=== PATIENT | female | born 1955 | race African-American/Black ===

== ENCOUNTER 2020-04-10 04:25 | Emergency (ER) | payer OTHER ==
[~2020-04-10] VITALS: Ht 157.5 cm; Wt 57.6 kg
[2020-04-10 04:35] VITALS: BP_SYST 132
[2020-04-10] MEDS ORDERED: KETOROLAC TROMETHAMINE 30 MG VIAL IVP ONE (05:15)
[2020-04-10] MEDS ORDERED: NACL 0.9% 1,000 ML IV ONE (05:15)
[2020-04-10] MEDS ORDERED: ONDANSETRON HCL 4 MG/2 ML VIAL IVP ONE (05:15)
[2020-04-10 05:42] LABS: BASOPHILS % (AUTO) 0.2 % (0.0-2.0); HEMATOCRIT 37.3 % (36-48); HEMOGLOBIN 12.2 g/dL (12.0-16.0); LYMPHOCYTES # (AUTO) 0.9 K/uL (1.0-5.5); LYMPHOCYTES % (AUTO) 14.9 % (20.5-51.5); MEAN CORPUSCULAR HEMOGLOBIN 33 pg (27-31); MEAN CORPUSCULAR HGB CONC 33 % (32-36); MEAN CORPUSCULAR VOLUME 100 fL (79.0-98.0); MONOCYTES # (AUTO) 0.3 K/uL (0.0-1.0); MONOCYTES % (AUTO) 4.4 % (1.7-9.3); NEUTROPHILS # (AUTO) 4.7 K/uL (1.8-7.7); NEUTROPHILS % (AUTO) 80.5 % (40.0-70.0); PLATELET COUNT (AUTO) 180 K/uL (130-430); RED BLOOD CELL COUNT(AUTO) 3.74 MIL/uL (4.2-6.2); RED CELL DISTRIBUTION WIDTH 13.8 % (9.0-15.0); WHITE BLOOD COUNT (AUTO) 5.9 K/uL (4.8-10.8)
[2020-04-10 06:05] LABS: ALBUMIN 3.9 g/dL (3.4-4.8); CALCIUM 9.2 mg/dL (8.4-11.0); CREATININE 0.56 mg/dL (0.55-1.30); POTASSIUM 3.1 mmol/L (3.5-5.1); TOTAL BILIRUBIN 0.6 mg/dL (0.0-1.0)
[2020-04-10] MEDS ORDERED: POTASSIUM CHLORIDE 20 MEQ/PKT PACKET PO ONE (08:45)
[2020-04-10 08:49] LABS: BILIRUBIN,URINE NEGATIVE (NEGATIVE); BLOOD, URINE NEGATIVE (NEGATIVE); CLARITY/URINE CLEAR (CLEAR); COLOR,URINE YELLOW (YELLOW); GLUCOSE,URINE NEGATIVE (NEGATIVE); KETONES,URINE TRACE (NEGATIVE); LEUKOCYTE ESTERASE ,URINE NEGATIVE (NEGATIVE); NITRITE, URINE NEGATIVE (NEGATIVE); PH,URINE 6.5 (5.0-8.0); PROTEIN URINE NEGATIVE (NEGATIVE); UROBILINOGEN,URINE 0.2 (0.2-1.0)
[2020-04-10] MEDS ORDERED: POTASSIUM CHLORIDE 20 MEQ/PKT PACKET ONE (09:01)
[2020-04-10 09:30] VITALS: BP_SYST 108
== END 2020-04-10 09:30 | disposition home or self-care (01) ==
LOC: SED 04:25
DX: R10.9 Unspecified abdominal pain (principal); R11.2 Nausea with vomiting, unspecified; R19.7 Diarrhea, unspecified
CPT/HCPCS: 36415; 74176; 76376; 80053; 81003; 82150; 83690; 85025; 85610; 93005; 96361; 96374; 96375; 99285; J1885; J2405; J7030

== ENCOUNTER 2021-04-26 08:35 | Emergency (ER) | payer OTHER ==
[~2021-04-26] VITALS: Ht 157.5 cm; Wt 55.3 kg
[2021-04-26 08:35] VITALS: BP_SYST 130
--- NOTE | 2021-04-26 08:35 | NUR ---
BROUGHT BACK TO BED #5 AND TRIAGED. REPORT GIVEN TO LUIS
--- NOTE | 2021-04-26 08:42 | NUR ---
ER at bedside examining patient.
[2021-04-26 09:11] LABS: BASOPHILS % (AUTO) 0.4 % (0.0-2.0); HEMATOCRIT 34.5 % (36-48); HEMOGLOBIN 11.3 g/dL (12.0-16.0); LYMPHOCYTES % (AUTO) 13.6 % (20.5-51.5); MEAN CORPUSCULAR HEMOGLOBIN 32 pg (27-31); MEAN CORPUSCULAR HGB CONC 33 % (32-36); MEAN CORPUSCULAR VOLUME 99 fL (79.0-98.0); MONOCYTES # (AUTO) 0.3 K/uL (0.0-1.0); MONOCYTES % (AUTO) 4.6 % (1.7-9.3); NEUTROPHILS # (AUTO) 6.1 K/uL (1.8-7.7); NEUTROPHILS % (AUTO) 81.4 % (40.0-70.0); PLATELET COUNT (AUTO) 197 K/uL (130-430); RED BLOOD CELL COUNT(AUTO) 3.49 MIL/uL (4.2-6.2); RED CELL DISTRIBUTION WIDTH 15.2 % (9.0-15.0); WHITE BLOOD COUNT (AUTO) 7.5 K/uL (4.8-10.8)
--- NOTE | 2021-04-26 09:24 | NUR ---
ARRIVES C/O CP AND BACK PAIN SINCE 11 PM LAST NIGHT. 12 LEAD DONE, BLOOD TO LAB, OIC PLACED. MD AT BEDSIDE
[2021-04-26] MEDS ORDERED: MORPHINE 4 MG INJ. 4 MG/ML VIAL IVP ONE ×2 (09:30→11:30)
[2021-04-26 09:33] LABS: CALCIUM 8.5 mg/dL (8.4-11.0); CREATININE 0.41 mg/dL (0.55-1.30); POTASSIUM 4.2 mmol/L (3.5-5.1)
[2021-04-26 09:40] LABS: ALBUMIN 3.9 g/dL (3.4-4.8); PHOSPHORUS 3.5 mg/dL (2.7-4.5); TOTAL BILIRUBIN 0.5 mg/dL (0.0-1.0)
[2021-04-26] MEDS ORDERED: NACL 0.9% 1,000 ML IV ONE (09:45)
[2021-04-26] MEDS ORDERED: ONDANSETRON HCL 4 MG/2 ML VIAL IVP ONE ×2 (09:45→11:30)
--- NOTE | 2021-04-26 10:24 | NUR ---
CONSENT SIGNED FOR CT ANGIO CHEST. MD AWARE UNABLE TO OBATIN 20G OR GREATER PIV TO AC.
[2021-04-26] MEDS ORDERED: IOHEXOL 350 mgI/mL, 150 ML INFUS..BTL IV ONE (10:32)
--- NOTE | 2021-04-26 11:16 | NUR ---
PT TO CT SCAN
--- NOTE | 2021-04-26 12:08 | NUR ---
Pt resting at this time, VSS, respirations even and unlabored
--- NOTE | 2021-04-26 13:13 | NUR ---
Urine not sent to lab per Dr. Tao, urine dip was done
[2021-04-26] MEDS ORDERED: ACET-2634 PO (13:57)
[2021-04-26] MEDS ORDERED: IBUP-1969 PO (13:57)
[2021-04-26 14:07] VITALS: BP_SYST 122
--- NOTE | 2021-04-26 14:13 | NUR ---
Patient given written and verbal discharge instructions and verbalizes understanding. ER MARLA MARTINEZ discussed with patient the results and treatment provided. Patient in stable condition. ID arm band removed. IV catheter removed intact and dressing applied, no active bleeding. Rx of MOTRIN given. Patient educated on pain management and to follow up with PMD. Pain Scale 2. Opportunity for questions provided and answered. Medication side effect fact sheet provided.
== END 2021-04-26 14:13 | disposition home or self-care (01) ==
LOC: SED 08:35
DX: R07.89 Other chest pain (principal); R03.0 Elevated blood-pressure reading, without diagnosis of hypertension; Z79.899 Other long term (current) drug therapy
CPT/HCPCS: 36415; 71045; 71275; 72191; 74175; 76376; 80053; 83690; 83735; 83880; 84100; 84484; 85025; 93005; 96361; 96374; 96375; 96376; 99285; J2270; J2405; J7030; Q9967

== ENCOUNTER 2021-07-23 09:04 | Emergency (ER) | payer OTHER ==
[~2021-07-23] VITALS: Ht 157.5 cm; Wt 56.7 kg
[~2021-07-23 09:04] MED LIST: ACET-2634 PO; IBUP-1969 PO
[2021-07-23 09:08] VITALS: BP_SYST 142
--- NOTE | 2021-07-23 09:08 | NUR ---
Patient to ER bed 2 to gown for evaluation. Side rails up. Report given to Jose Luis. Triage done at bedside.
--- NOTE | 2021-07-23 09:10 | NUR ---
Pt. bib boyfriend with initial c/o chest pain, during triage pts. pain is actually more abd. with N/V/D X 4 days, states feels like her intestines are burning, this is her 3rd visit to our ER with same type of pain
--- NOTE | 2021-07-23 09:12 | NUR ---
ER at bedside examining patient.
[2021-07-23] MEDS: ONDANSETRON 4 MG ODT TAB PO ONE (09:30)
[2021-07-23 09:47] LABS: BASOPHILS % (AUTO) 0.6 % (0.0-2.0); EOSINOPHILS # (AUTO) 0.1 K/uL (0.0-0.4); EOSINOPHILS % (AUTO) 2.2 % (0.0-4.0); HEMATOCRIT 40.2 % (36-48); LYMPHOCYTES # (AUTO) 1.7 K/uL (1.0-5.5); LYMPHOCYTES % (AUTO) 35.6 % (20.5-51.5); MEAN CORPUSCULAR HEMOGLOBIN 32 pg (27-31); MEAN CORPUSCULAR HGB CONC 32 % (32-36); MEAN CORPUSCULAR VOLUME 98 fL (79.0-98.0); MONOCYTES # (AUTO) 0.4 K/uL (0.0-1.0); MONOCYTES % (AUTO) 9.3 % (1.7-9.3); NEUTROPHILS # (AUTO) 2.5 K/uL (1.8-7.7); NEUTROPHILS % (AUTO) 52.3 % (40.0-70.0); PLATELET COUNT (AUTO) 157 K/uL (130-430); RED BLOOD CELL COUNT(AUTO) 4.09 MIL/uL (4.2-6.2); RED CELL DISTRIBUTION WIDTH 13.7 % (9.0-15.0); WHITE BLOOD COUNT (AUTO) 4.7 K/uL (4.8-10.8)
--- NOTE | 2021-07-23 10:00 | NUR ---
In ER bed 2 C/O Substernal and back pain EKG done Blood sent Xray done Awaiting results
[2021-07-23 10:04] LABS: ANION GAP 9 (5-15); CALCIUM 8.4 mg/dL (8.4-11.0); CHLORIDE 104 mmol/L (98-107); CREATININE 0.44 mg/dL (0.55-1.30); GLUCOSE 97 mg/dL (70-99); POTASSIUM 3.3 mmol/L (3.5-5.1); SODIUM SERUM 139 mmol/L (136-145); UREA NITROGEN, BLOOD 6 mg/dL (8-21)
[2021-07-23 10:06] LABS: GFR AFRICAN AMERICAN 184 mL/min (>90)
[2021-07-23 10:08] LABS: ALANINE AMINOTRANSFERASE 22 U/L (12-78); ALBUMIN 3.5 g/dL (3.4-4.8); AMYLASE 35 U/L (0-100); ASPARTATE AMINOTRANSFERASE 24 U/L (10-37); LIPASE 69 U/L (73-393); TOTAL BILIRUBIN 0.5 mg/dL (0.0-1.0)
[2021-07-23] MEDS: NACL 0.9% 1,000 ML IV ONE (10:12)
[2021-07-23] MEDS: MORPHINE 2 MG/ML INJ. SYRINGE IVP ONE (10:12)
[2021-07-23 10:33] LABS: BLOOD, URINE NEGATIVE (NEGATIVE); CLARITY/URINE CLEAR (CLEAR); GLUCOSE,URINE NEGATIVE (NEGATIVE); KETONES,URINE 3+ (NEGATIVE); LEUKOCYTE ESTERASE ,URINE NEGATIVE (NEGATIVE); NITRITE, URINE NEGATIVE (NEGATIVE); PROTEIN URINE NEGATIVE (NEGATIVE)
[2021-07-23 10:33] LABS: C-REACTIVE PROTEIN QUANT < 0.2 mg/dL (0-0.5)
[2021-07-23 10:42] LABS: BILIRUBIN,URINE 1+ (NEGATIVE); COLOR,URINE AMBER (YELLOW)
[2021-07-23 10:44] LABS: BACTERIA,URINE FEW /HPF (None Seen); MUCUS,URINE 3+ /LPF (None Seen); RBC,URINE 0-3 /HPF (0-3); WBC,URINE 0-3 /HPF (0-3)
[2021-07-23] MEDS ORDERED: HYDR-3917 PO (10:53)
[2021-07-23] MEDS ORDERED: ONDA-8 TL (10:53)
[2021-07-23 10:56] VITALS: BP_SYST 121
--- NOTE | 2021-07-23 11:00 | NUR ---
Patient given written and verbal discharge instructions and verbalizes understanding. ER MD discussed with patient the results and treatment provided. Patient in stable condition. ID arm band removed. IV catheter removed intact and dressing applied, no active bleeding. Rx of given. Patient educated on pain management and to follow up with PMD. Pain Scale . Opportunity for questions provided and answered. Medication side effect fact sheet provided.
--- NOTE | 2021-07-23 11:00 | NUR ---
Stable VSS Pain has decreased MD has reviewed all labs and Dc'd home To exit
== END 2021-07-23 10:56 | disposition home or self-care (01) ==
LOC: SED 09:04
DX: R10.13 Epigastric pain (principal); R07.2 Precordial pain; Z79.899 Other long term (current) drug therapy
CPT/HCPCS: 36415; 71045; 74176; 76376; 80053; 81000; 82150; 83605; 83690; 84484; 85025; 86140; 93005; 96361; 96374; 99285; J2270; J7030; Q0162

== ENCOUNTER 2021-12-15 18:26 | Inpatient (IN) | payer OTHER ==
[~2021-12-15] VITALS: Ht 160 cm; Wt 56.7 kg
[~2021-12-15 18:26] MED LIST changes: +HYDR-3917 PO; +ONDA-8 TL
[2021-12-15 18:43] VITALS: BP_SYST 116
--- NOTE | 2021-12-15 19:27 | NUR ---
Patient to ER bed 03 to gown for evaluation. Side rails up. Report given to Graham HENRY.
[2021-12-15] MEDS ORDERED: NACL 0.9% 1,000 ML IV ONE (19:30)
[2021-12-15] MEDS ORDERED: FAMOTIDINE PF 20 MG/2 ML VIAL IVP ONE (19:45)
[2021-12-15] MEDS ORDERED: MORPHINE 4 MG INJ. 4 MG/ML VIAL IVP ONE ×2 (19:45→21:00)
[2021-12-15] MEDS ORDERED: ONDANSETRON HCL 4 MG/2 ML VIAL IVP ONE ×2 (19:45→21:00)
[2021-12-15 20:22] LABS: BILIRUBIN,URINE 3+ (NEGATIVE); BLOOD, URINE 1+ (NEGATIVE); CLARITY/URINE CLEAR (CLEAR); GLUCOSE,URINE NEGATIVE (NEGATIVE); KETONES,URINE 3+ (NEGATIVE); LEUKOCYTE ESTERASE ,URINE NEGATIVE (NEGATIVE); NITRITE, URINE NEGATIVE (NEGATIVE); PROTEIN URINE 1+ (NEGATIVE)
[2021-12-15 20:24] LABS: BASOPHILS # (AUTO) 0.1 K/uL (0.0-0.2); BASOPHILS % (AUTO) 1.2 % (0.0-2.0); EOSINOPHILS # (AUTO) 0.1 K/uL (0.0-0.4); EOSINOPHILS % (AUTO) 0.9 % (0.0-4.0); HEMATOCRIT 35.9 % (36-48); HEMOGLOBIN 12.1 g/dL (12.0-16.0); LYMPHOCYTES # (AUTO) 1.1 K/uL (1.0-5.5); LYMPHOCYTES % (AUTO) 9.9 % (20.5-51.5); MEAN CORPUSCULAR HEMOGLOBIN 33 pg (27-31); MEAN CORPUSCULAR HGB CONC 34 % (32-36); MEAN CORPUSCULAR VOLUME 97 fL (79.0-98.0); MONOCYTES # (AUTO) 0.5 K/uL (0.0-1.0); MONOCYTES % (AUTO) 4.6 % (1.7-9.3); NEUTROPHILS % (AUTO) 83.4 % (40.0-70.0); PLATELET COUNT (AUTO) 144 K/uL (130-430); RED BLOOD CELL COUNT(AUTO) 3.71 MIL/uL (4.2-6.2); RED CELL DISTRIBUTION WIDTH 14.4 % (9.0-15.0); WHITE BLOOD COUNT (AUTO) 10.8 K/uL (4.8-10.8)
[2021-12-15 20:28] LABS: CALCIUM 9.5 mg/dL (8.4-11.0); CREATININE 0.69 mg/dL (0.55-1.30)
[2021-12-15 20:33] LABS: ALBUMIN 3.6 g/dL (3.4-4.8); TOTAL BILIRUBIN 0.9 mg/dL (0.0-1.0)
[2021-12-15 20:39] LABS: COLOR,URINE YELLOW (YELLOW)
[2021-12-15 20:50] LABS: BACTERIA,URINE RARE /HPF (None Seen)
[2021-12-15 20:51] LABS: HYALINE CASTS, URINE 0-10 /LPF (None Seen); MUCUS,URINE 2+ /LPF (None Seen)
[2021-12-15] MEDS ORDERED: ACETAMINOPHEN 325 MG TABLET PO PRN (22:00)
[2021-12-15] MEDS ORDERED: KETOROLAC TROMETHAMINE 30 MG VIAL IVP ONE (22:45)
[2021-12-15] MEDS: MORPHINE 4 MG INJ. 4 MG/ML VIAL IVP PRN (23:21)
[2021-12-15] MEDS: ONDANSETRON HCL 4 MG/2 ML VIAL IVP PRN (23:21)
--- NOTE | 2021-12-15 23:35 | NUR ---
PATIENT STATES SHE IS FULL CODE AND DOES NOT TAKE ANY MEDICATION.
[2021-12-15] MEDS: D5/0.45 NS 1,000 ML IV SCH (23:41)
--- NOTE | 2021-12-15 23:41 | NUR ---
Admit bed requested Patient will be admitted to care of . Admitted to MED SURG unit. Diagnosis PANCREATITIS Inpatient (Yes or No) YES Observation (Yes or No) NO Orientation concerns or request close to nursing station (Yes or No) NO Covid Status - On vent or bipap N Isolation requirements N Needs a sitter N From Home (Yes or if No enter name of facility) Y Requires Dialysis (Yes or No) N Med Rec Completed (Yes of No) Y
--- NOTE | 2021-12-16 | NUR ---
PT BIB BOYFRIEND, AWAKE AND ALERT, AO X4. NO SOB. PT C/O ABDOMINAL PAIN 10/ X 3 DAYS. PT DENIES N/V. PERRLA, CAP REFILL < 3 SEC.
--- NOTE | 2021-12-16 00:01 | NUR ---
MD DR GUTIÉRREZ AT BEDSIDE
--- NOTE | 2021-12-16 01:30 | NUR ---
SBP IS 86 PATIENT REPORTS THAT SBP IS NORMALLY IN THE 75S. CALLED PLACED TO DR. SOSA. Addendum: 12/16/21 at 0131 by [email or web address] PATIENT AWAKE, ALERT AND ANSWERING QUESTIONS.
--- NOTE | 2021-12-16 02:45 | NUR ---
Patient resting quietly. No acute distress noted.
--- NOTE | 2021-12-16 04:44 | NUR ---
PATIENT RESTING IN BED. VOICED NO CONCERNS. BP 81/42. PATIENT REPORTS BASELINE SBP IN THE 70S. AOX4, NO ACUTE DISTRESS NOTED.
--- NOTE | 2021-12-16 05:37 | NUR ---
PATIENT STATES SHE IS FULL CODE AND DENIES TAKING ANY MEDICATION DAILY.
--- NOTE | 2021-12-16 06:12 | NUR ---
PATIENT MOVED TO HOSPITAL BED.
[2021-12-16] MEDS: D5/0.45 NS 1,000 ML IV SCH ×3 (06:43→22:37)
--- NOTE | 2021-12-16 06:43 | NUR ---
IVF infusing with no s/s of infiltration at this time. Will cont to monitor
--- NOTE | 2021-12-16 07:13 | NUR ---
REPORT GIVEN TO ELAINE HECTOR FOR CONTINUITY OF CARE.
--- NOTE | 2021-12-16 07:52 | NUR ---
RECEIVED PT FROM ELAINE MYERS. PT IS ADMITTED FOR ABDOMINAL PAIN WITH C/O N/V AND PAIN X5 DAYS. PT IS AAOX4. RESP E/U. ON R/A. NORMAL S1S2 NOTED. ABDOMEN SOFT, TENDER. PT DENIES N/V AT THIS TIME. SKIN WARM, INTACT, CAP REFILL <3 SECS. NO EDEMA. IV CATH TO RAC 20 WITH D5 NS RUNNING 125ML/HOUR. SITE WNL. SIDERAILS UP X2.
[2021-12-16] MEDS: MORPHINE 4 MG INJ. 4 MG/ML VIAL IVP PRN ×3 (09:28→22:38)
--- NOTE | 2021-12-16 09:32 | NUR ---
Patient will be admitted to care of ELAINE GERBER. Admitted to MEDICAL SURGICAL unit. Will go to room 128B. Belongings list completed. Complete and up to date summary report printed. SBAR report to be given at bedside with opportunity for questions.
--- NOTE | 2021-12-16 09:39 | NUR ---
MORPHINE 3MG IVP GIVEN FOR ABDOMINAL PAIN 10/11. CALLED AND UPDATED ADRIANA THAT PAIN MEDICATION WAS JUST GIVEN. PT TRANSPORTING AT THIS TIME.
[2021-12-16 09:50] VITALS: BP_SYST 105
--- NOTE | 2021-12-16 09:50 | NUR ---
admitted patient admitted from ER report was endorsed by er nurse. patient is awake and alert, educated air pollution analyst light for assistance. call light is with her. patient changed into gown. ambulated to bathroom and back to bed, gait is steady. patient has no other needs at this time. no signs of any distress.
[2021-12-16 12:00] VITALS: BP_SYST 91
[2021-12-16] MEDS ORDERED: PANTOPRAZOLE SODIUM 40 MG/VIAL (PROTONIX) IVP ONE (12:00)
--- NOTE | 2021-12-16 12:53 | NUR ---
medication patients scheduled medication given per order. patient is awake and alert sitting up in bed no signs of any distress,breathing is equal and non labored. call light is with her educated to use call light for assistance.
--- NOTE | 2021-12-16 15:46 | NUR ---
pain medication/ iv fluid iv fluid hung per order. patients complains of pain medicated per order. patient is awake and alert. educated organizational research consultant light for assistance. call light is with her.
[2021-12-16 16:00] VITALS: BP_SYST 99
--- NOTE | 2021-12-16 18:58 | NUR ---
rn closing note patient is awake and alert sitting in bed, significant other at bedside. patient is awake and alert no complaints at this time. call light is with her educated to use for assistance.
--- NOTE | 2021-12-16 19:40 | NUR ---
INITIAL NOTE AT INITIAL ASSESSMENT, PATIENT IS RESTING IN BED, STABLE, NO SIGNS OF RESPIRATORY DISTRESS. PATIENT VERBALIZES TOLERABLE PAIN. PLAN OF CARE FOR THE EVENING IS COMMUNICATED WITH THE PATIENT. PATIENT SUCCESSFULLY DEMONSTRATES CORRECT USAGE OF CALL LIGHT AT THIS TIME. BED IS LOCKED, AND AT THE LOWEST LEVEL. FALL, SAFETY, AND ASPIRATION PRECAUTIONS WILL BE IN PLACE THROUGHOUT THE SHIFT.
[2021-12-16 19:45] VITALS: BP_SYST 106
[2021-12-16] MEDS: ONDANSETRON HCL 4 MG/2 ML VIAL IVP PRN (22:37)
--- NOTE | 2021-12-16 22:50 | NUR ---
PAIN NOTE PRN MEDICATION GIVEN FOR PATIENT'S COMPLAINT OF SEVERE PAIN. WILL REASSESS.
[2021-12-17 00:44] VITALS: BP_SYST 96
--- NOTE | 2021-12-17 01:30 | NUR ---
NOTE PATIENT SLEEPING, STABLE, NO SIGNS OF RESPIRATORY DISTRESS. CALL LIGHT WITHIN REACH.
--- NOTE | 2021-12-17 03:20 | NUR ---
ROUNDS PATIENT IS SLEEPING, STABLE, NO SIGNS OF RESPIRATORY DISTRESS. CALL LIGHT WITHIN REACH.
--- NOTE | 2021-12-17 06:01 | NUR ---
CLOSING NOTE PATIENT SLEPT WELL THROUGHOUT THE NIGHT, SHE VERBALIZED THAT PRN MEDICATION GIVEN TO HER FOR HER ABDOMINAL PAIN WAS EFFECTIVE. AT THIS TIME, SHE IS STABLE, NO SIGNS OF RESPIRATORY DISTRESS. CALL LIGHT WITHIN REACH. BED IS LOCKED, AND AT THE LOWEST LEVEL. FALL AND SAFETY PRECAUTIONS HAVE BEEN IN PLACE THROUGHOUT THE SHIFT. WILL CONTINUE TO MONITOR UNTIL REPORT IS GIVEN AT BEDSIDE TO AM NURSE.
[2021-12-17] MEDS: ONDANSETRON HCL 4 MG/2 ML VIAL IVP PRN ×2 (06:47→12:31)
[2021-12-17] MEDS: D5/0.45 NS 1,000 ML IV SCH ×2 (06:51→14:00)
[2021-12-17] MEDS: MORPHINE 4 MG INJ. 4 MG/ML VIAL IVP PRN ×2 (06:51→12:31)
--- NOTE | 2021-12-17 07:00 | NUR ---
Report received from night shift manager RN for continuity of care. Patient stable.
[2021-12-17 07:40] VITALS: BP_SYST 91
[2021-12-17 07:42] LABS: CALCIUM 8.5 mg/dL (8.4-11.0); CREATININE 0.59 mg/dL (0.55-1.30)
[2021-12-17] MEDS: PANTOPRAZOLE SODIUM 40 MG/VIAL (PROTONIX) IVP SCH (08:59)
[2021-12-17 09:26] LABS: POTASSIUM 2.7 mmol/L (3.5-5.1)
[2021-12-17] MEDS ORDERED: KCL 10 mEq in 50 mL (PREMIX) 50 ML IV ONE ×3 (09:45)
[2021-12-17] MEDS: KCL 40 mEq in 100 mL (PREMIX) 100 ML IV ONE ×2 (09:56→10:08)
[2021-12-17] MEDS ORDERED: KCL 20 mEq in 100 mL (PREMIX) 100 ML IV ONE ×2 (10:00→12:00)
[2021-12-17] MEDS ORDERED: KCL 40 mEq in 100 mL (PREMIX) 100 ML IV ONE (10:00)
--- NOTE | 2021-12-17 10:11 | NUR ---
Potassium [address] Zamora. New orders noted and carried out.
--- NOTE | 2021-12-17 10:34 | NUR ---
Dietitian Recommendations * Clear liquid diet w/ Ensure Clear ONS TID w/ meals (720 Kcals, 24 gm protein); goal diet may be soft/bland (pescatarian, no lactose) * Consider multivitamin, thiamine and folic acid 2/2 history of alcohol Please refer to nutrition assessment for details. PS, RD
[2021-12-17] MEDS ORDERED: POTASSIUM CHLORIDE 40 MEQ in NS 250 ML IV ONE (11:00)
[2021-12-17 12:00] VITALS: BP_SYST 104
[2021-12-17 16:00] VITALS: BP_SYST 100
--- NOTE | 2021-12-17 19:06 | NUR ---
Report given to retail shift supervisor RN for continuity of care. Patient in stable condition. No distress noted.
--- NOTE | 2021-12-17 19:15 | NUR ---
OPENING NOTES Patient resting in bed - no s/s pain or distress noted. Respirations even and unlabored - head of bed elevated. IV site patent - no s/s redness, infection, or infiltration. Bed locked and in lowest position. Call light within reach.
[2021-12-17 20:00] VITALS: BP_SYST 102
[2021-12-18] VITALS: BP_SYST 103
[2021-12-18] MEDS: D5/0.45 NS 1,000 ML IV SCH ×3 (00:21→09:44)
[2021-12-18] MEDS: ONDANSETRON HCL 4 MG/2 ML VIAL IVP PRN (07:00)
[2021-12-18] MEDS: MORPHINE 4 MG INJ. 4 MG/ML VIAL IVP PRN (07:01)
[2021-12-18 07:28] LABS: BASOPHILS % (AUTO) 0.5 % (0.0-2.0); EOSINOPHILS # (AUTO) 0.1 K/uL (0.0-0.4); EOSINOPHILS % (AUTO) 2.8 % (0.0-4.0); HEMATOCRIT 27.1 % (36-48); HEMOGLOBIN 8.9 g/dL (12.0-16.0); LYMPHOCYTES # (AUTO) 1.6 K/uL (1.0-5.5); LYMPHOCYTES % (AUTO) 39.9 % (20.5-51.5); MEAN CORPUSCULAR HEMOGLOBIN 32 pg (27-31); MEAN CORPUSCULAR HGB CONC 33 % (32-36); MEAN CORPUSCULAR VOLUME 98 fL (79.0-98.0); MONOCYTES # (AUTO) 0.3 K/uL (0.0-1.0); MONOCYTES % (AUTO) 7.5 % (1.7-9.3); NEUTROPHILS % (AUTO) 49.3 % (40.0-70.0); PLATELET COUNT (AUTO) 129 K/uL (130-430); RED BLOOD CELL COUNT(AUTO) 2.76 MIL/uL (4.2-6.2); RED CELL DISTRIBUTION WIDTH 14.3 % (9.0-15.0)
--- NOTE | 2021-12-18 07:37 | NUR ---
CLOSING NOTES Patient resting in bed - no s/s pain or distress noted. Respirations even and unlabored - head of bed elevated. IV site patent - no s/s redness, infection, or infiltration. Bed locked and in lowest position.
[2021-12-18 08:00] VITALS: BP_SYST 96
--- NOTE | 2021-12-18 08:00 | NUR ---
Initial Notes Patient is AOx4. Ambulatory. No s.s of distress noted. Patient's breathing is even and nonlabored, on room air. denies SOB. Denies pain at this time. Vital signs obtained, as documented. IVF running, IV patent. Safety precautions in place and call light within reach.
[2021-12-18 08:22] LABS: CALCIUM 8.7 mg/dL (8.4-11.0); CREATININE 0.58 mg/dL (0.55-1.30); POTASSIUM 3.3 mmol/L (3.5-5.1)
[2021-12-18] MEDS ORDERED: POTASSIUM CHLORIDE 20 MEQ/PKT PACKET PO ONE (10:45)
[2021-12-18] MEDS: PANTOPRAZOLE SODIUM 40 MG/VIAL (PROTONIX) IVP SCH (11:14)
[2021-12-18] MEDS ORDERED: MAG-AL HYDROX/SIMETH 30 ML UDC PO ONE (11:45)
[2021-12-18 11:51] VITALS: BP_SYST 96
[2021-12-18] MEDS ORDERED: SUCRALFATE 1 GM TABLET PO ONE (12:20)
--- NOTE | 2021-12-18 12:20 | NUR ---
Discharge Patient given medication reconciliation form and D/C instructions. Exit Care provided. Patient verbalized understanding. MD discussed with patient the results and treatment provided. Ambulatory with steady gait for discharge to home. Patient in stable condition, ID band removed. IV catheter removed, intact and dressing applied, no active bleeding. Rx of given. Patient educated on pain management. All belongings sent with patient.
[2021-12-18] MEDS ORDERED: SUCRALFATE 1 GM TABLET PO SCH (17:00)
--- NOTE | 2021-12-21 12:04 | NUR ---
Dispo code 01
== END 2021-12-18 12:20 | disposition home or self-care (01) | DRG 393 ==
LOC: SED 18:26 → SMU 22:00
PROVIDERS: ADMIT Internal Medicine; ATTEND Internal Medicine
DX: K52.1 Toxic gastroenteritis and colitis (principal); K85.20 Alcohol induced acute pancreatitis without necrosis or infection; T39.395A Adverse effect of other nonsteroidal anti-inflammatory drugs [NSAID], initial encounter; F17.210 Nicotine dependence, cigarettes, uncomplicated; K59.00 Constipation, unspecified; K29.00 Acute gastritis without bleeding; Z20.822 Contact with and (suspected) exposure to COVID-19; Z90.49 Acquired absence of other specified parts of digestive tract; Z79.891 Long term (current) use of opiate analgesic; Z79.899 Other long term (current) drug therapy; Y92.89 Other specified places as the place of occurrence of the external cause; Z71.41 Alcohol abuse counseling and surveillance of alcoholic
CPT/HCPCS: 36415; 71045; 76376; 80048; 80053; 81000; 82787; 83690; 83735; 85025; 86038; 96374; 96375; 99285; C9113; J1885; J2270; J2405; J3480; J3490; J7050

== ENCOUNTER 2023-02-22 07:47 | Emergency (ER) | payer OTHER ==
[~2023-02-22] VITALS: Ht 157.5 cm; Wt 59.0 kg
[2023-02-22 07:51] VITALS: BP_SYST 133; PULSE 87; RESP 24; TEMP 98.6; O2SAT 99
[2023-02-22] MEDS ORDERED: NACL 0.9% 1,000 ML IV ONE (08:15)
[2023-02-22] MEDS ORDERED: MORPHINE 4 MG INJ. 4 MG/ML VIAL IVP ONE (08:15)
[2023-02-22] MEDS ORDERED: FAMOTIDINE PF 20 MG/2 ML VIAL IVP ONE (08:15)
[2023-02-22] MEDS ORDERED: ONDANSETRON HCL 4 MG/2 ML VIAL IVP ONE (08:15)
[2023-02-22 08:36] LABS: BASOPHILS # (AUTO) 0.1 K/uL (0.0-0.2); BASOPHILS % (AUTO) 0.9 % (0.0-2.0); EOSINOPHILS # (AUTO) 0.3 K/uL (0.0-0.4); EOSINOPHILS % (AUTO) 4.6 % (0.0-4.0); HEMATOCRIT 41.9 % (36-48); HEMOGLOBIN 13.6 g/dL (12.0-16.0); LYMPHOCYTES % (AUTO) 32.1 % (20.5-51.5); MEAN CORPUSCULAR HEMOGLOBIN 31 pg (27-31); MEAN CORPUSCULAR HGB CONC 32 % (32-36); MEAN CORPUSCULAR VOLUME 97 fL (79.0-98.0); MONOCYTES # (AUTO) 0.5 K/uL (0.0-1.0); MONOCYTES % (AUTO) 7.3 % (1.7-9.3); NEUTROPHILS # (AUTO) 3.4 K/uL (1.8-7.7); NEUTROPHILS % (AUTO) 55.1 % (40.0-70.0); PLATELET COUNT (AUTO) 199 K/uL (130-430); RED BLOOD CELL COUNT(AUTO) 4.32 MIL/uL (4.2-6.2); RED CELL DISTRIBUTION WIDTH 15.2 % (9.0-15.0); WHITE BLOOD COUNT (AUTO) 6.2 K/uL (4.8-10.8)
[2023-02-22 08:38] LABS: ANION GAP 13 (5-15); CALCIUM 9.5 mg/dL (8.4-11.0); CARBON DIOXIDE 25 mmol/L (23-29); CHLORIDE 105 mmol/L (98-107); CREATININE 0.58 mg/dL (0.55-1.30); GFR AFRICAN AMERICAN 133 mL/min (>90); GLUCOSE 122 mg/dL (74-106); POTASSIUM 3.7 mmol/L (3.5-5.1); SODIUM SERUM 143 mmol/L (136-145); UREA NITROGEN, BLOOD 5 mg/dL (8-21)
[2023-02-22 08:39] LABS: GFR NON AFRICAN-AMERICAN 110 mL/min (>90)
[2023-02-22 08:43] LABS: ALANINE AMINOTRANSFERASE 19 U/L (12-78); ALCOHOL, BLOOD 5 mg/dL (<10); ASPARTATE AMINOTRANSFERASE 15 U/L (10-37); BILIRUBIN,DIRECT 0.1 mg/dL (0.0-0.3); LIPASE 31 U/L (16-77); TOTAL BILIRUBIN 0.3 mg/dL (0.0-1.0); TOTAL PROTEIN, SERUM 7.1 g/dL (6.4-8.3)
[2023-02-22 09:48] LABS: BILIRUBIN,URINE NEGATIVE (NEGATIVE); BLOOD, URINE NEGATIVE (NEGATIVE); CLARITY/URINE CLEAR (CLEAR); COLOR,URINE YELLOW (YELLOW); GLUCOSE,URINE NEGATIVE (NEGATIVE); KETONES,URINE NEGATIVE (NEGATIVE); LEUKOCYTE ESTERASE ,URINE NEGATIVE (NEGATIVE); NITRITE, URINE NEGATIVE (NEGATIVE); PH,URINE 8.5 (5.0-8.0); PROTEIN URINE TRACE (NEGATIVE); UROBILINOGEN,URINE 0.2 (0.2-1.0)
[2023-02-22] MEDS ORDERED: FAMO20TA8 PO (10:06)
[2023-02-22] MEDS ORDERED: ONDA-8 TL (10:06)
[2023-02-22 11:28] VITALS: BP_SYST 115; PULSE 80; RESP 20; TEMP 98; O2SAT 99
== END 2023-02-22 11:28 | disposition home or self-care (01) ==
LOC: SED 07:47
DX: R10.13 Epigastric pain (principal); R11.2 Nausea with vomiting, unspecified; Z79.899 Other long term (current) drug therapy
CPT/HCPCS: 99285; 74176; 96374; 71045; 96375; 96361; 80076; 80048; 83880; 83690; 85025; 84484; 36415; 93005; 76376; 81001; 81003; 81000; G0482; J3490; J2405; J2270; J7030

== ENCOUNTER 2023-03-10 18:02 | Emergency (ER) | payer MEDICARE, OTHER ==
[~2023-03-10] VITALS: Ht 160 cm; Wt 59.0 kg
[~2023-03-10 18:02] MED LIST changes: -ACET-2634 PO; +FAMO20TA8 PO; -HYDR-3917 PO; -IBUP-1969 PO
[2023-03-10 18:36] VITALS: BP_SYST 134; PULSE 49; RESP 16; TEMP 98.6; O2SAT 100
[2023-03-10] MEDS ORDERED: ONDANSETRON HCL 4 MG/2 ML VIAL IVP ONE (18:45)
[2023-03-10] MEDS ORDERED: NACL 0.9% 1,000 ML IV ONE (18:45)
[2023-03-10] MEDS ORDERED: KETOROLAC TROMETHAMINE 30 MG VIAL IVP ONE (18:45)
[2023-03-10 20:23] LABS: BASOPHILS % (AUTO) 0.6 % (0.0-2.0); EOSINOPHILS # (AUTO) 0.1 K/uL (0.0-0.4); EOSINOPHILS % (AUTO) 1.3 % (0.0-4.0); HEMATOCRIT 38.5 % (36-48); HEMOGLOBIN 12.5 g/dL (12.0-16.0); LYMPHOCYTES # (AUTO) 1.2 K/uL (1.0-5.5); LYMPHOCYTES % (AUTO) 16.5 % (20.5-51.5); MEAN CORPUSCULAR HEMOGLOBIN 31 pg (27-31); MEAN CORPUSCULAR HGB CONC 33 % (32-36); MEAN CORPUSCULAR VOLUME 96 fL (79.0-98.0); MONOCYTES # (AUTO) 0.3 K/uL (0.0-1.0); MONOCYTES % (AUTO) 4.6 % (1.7-9.3); NEUTROPHILS # (AUTO) 5.6 K/uL (1.8-7.7); PLATELET COUNT (AUTO) 249 K/uL (130-430); RED CELL DISTRIBUTION WIDTH 14.6 % (9.0-15.0); WHITE BLOOD COUNT (AUTO) 7.3 K/uL (4.8-10.8)
[2023-03-10] MEDS ORDERED: MORPHINE 4 MG INJ. 4 MG/ML VIAL IVP ONE ×2 (20:30→21:30)
[2023-03-10 20:34] LABS: CREATININE 0.63 mg/dL (0.55-1.30); POTASSIUM 3.7 mmol/L (3.5-5.1)
[2023-03-10 20:38] LABS: ALBUMIN 3.3 g/dL (3.4-4.8); BILIRUBIN,DIRECT 0.1 mg/dL (0.0-0.3); TOTAL BILIRUBIN 0.3 mg/dL (0.0-1.0); TOTAL PROTEIN, SERUM 6.1 g/dL (6.4-8.3)
[2023-03-10] MEDS ORDERED: PIPERACILLIN/TAZO 3.375 GM in NS 50 ML IV ONE (21:00)
[2023-03-10 21:13] LABS: BILIRUBIN,URINE NEGATIVE (NEGATIVE); BLOOD, URINE NEGATIVE (NEGATIVE); CLARITY/URINE CLEAR (CLEAR); COLOR,URINE YELLOW (YELLOW); GLUCOSE,URINE NEGATIVE (NEGATIVE); KETONES,URINE TRACE (NEGATIVE); LEUKOCYTE ESTERASE ,URINE NEGATIVE (NEGATIVE); NITRITE, URINE NEGATIVE (NEGATIVE); PH,URINE 8.5 (5.0-8.0); PROTEIN URINE TRACE (NEGATIVE); UROBILINOGEN,URINE 0.2 (0.2-1.0)
[2023-03-10 21:27] LABS: RBC,URINE NONE SEEN /HPF (0-3); WBC,URINE 0-3 /HPF (0-3)
[2023-03-10 21:28] LABS: BACTERIA,URINE RARE /HPF (None Seen); MUCUS,URINE 1+ /LPF (None Seen)
[2023-03-10] MEDS ORDERED: HYDR-3917 PO (21:30)
[2023-03-10] MEDS ORDERED: AUG875 PO (21:30)
[2023-03-10] MEDS ORDERED: PIPERACILLIN/TAZOBACTAM 3.375 GM/VIAL (ZOSYN) IV ONE (21:38)
[2023-03-10 22:49] VITALS: BP_SYST 115; PULSE 67; RESP 15; O2SAT 95
== END 2023-03-10 22:49 | disposition home or self-care (01) ==
LOC: SED 18:02
DX: K52.9 Noninfective gastroenteritis and colitis, unspecified (principal); R10.13 Epigastric pain; Z79.899 Other long term (current) drug therapy
CPT/HCPCS: 99285; 74176; 96365; 96375; 96361; 80076; 80048; 81001; 82150; 83690; 85025; 36415; 76376; 96376; 81000; 81015; J1885; J2405; J2543; J2270; J7030

== ENCOUNTER 2023-03-15 14:32 | Inpatient (IN) | payer MEDICARE ==
[~2023-03-15] VITALS: Ht 157.5 cm; Wt 56.7 kg
[~2023-03-15 14:32] MED LIST changes: +AUG875 PO; +HYDR-3917 PO
[2023-03-15 14:39] VITALS: BP_SYST 117; PULSE 82; RESP 22; TEMP 98.3; O2SAT 100
[2023-03-15 15:35] LABS: BILIRUBIN,URINE NEGATIVE (NEGATIVE); BLOOD, URINE NEGATIVE (NEGATIVE); CLARITY/URINE CLEAR (CLEAR); COLOR,URINE YELLOW (YELLOW); GLUCOSE,URINE NEGATIVE (NEGATIVE); KETONES,URINE NEGATIVE (NEGATIVE); LEUKOCYTE ESTERASE ,URINE NEGATIVE (NEGATIVE); NITRITE, URINE NEGATIVE (NEGATIVE); PROTEIN URINE NEGATIVE (NEGATIVE); UROBILINOGEN,URINE 0.2 (0.2-1.0)
[2023-03-15 16:25] LABS: BASOPHILS % (AUTO) 0.6 % (0.0-2.0); EOSINOPHILS # (AUTO) 0.3 K/uL (0.0-0.4); EOSINOPHILS % (AUTO) 4.7 % (0.0-4.0); HEMATOCRIT 38.4 % (36-48); HEMOGLOBIN 12.5 g/dL (12.0-16.0); LYMPHOCYTES # (AUTO) 1.7 K/uL (1.0-5.5); LYMPHOCYTES % (AUTO) 28.6 % (20.5-51.5); MEAN CORPUSCULAR HEMOGLOBIN 32 pg (27-31); MEAN CORPUSCULAR HGB CONC 33 % (32-36); MEAN CORPUSCULAR VOLUME 97 fL (79.0-98.0); MONOCYTES # (AUTO) 0.3 K/uL (0.0-1.0); MONOCYTES % (AUTO) 5.8 % (1.7-9.3); NEUTROPHILS # (AUTO) 3.6 K/uL (1.8-7.7); NEUTROPHILS % (AUTO) 60.3 % (40.0-70.0); PLATELET COUNT (AUTO) 251 K/uL (130-430); RED BLOOD CELL COUNT(AUTO) 3.98 MIL/uL (4.2-6.2); RED CELL DISTRIBUTION WIDTH 14.9 % (9.0-15.0); WHITE BLOOD COUNT (AUTO) 5.9 K/uL (4.8-10.8)
[2023-03-15 16:37] LABS: ANION GAP 7 (5-15); CALCIUM 9.5 mg/dL (8.4-11.0); CARBON DIOXIDE 29 mmol/L (23-29); CHLORIDE 108 mmol/L (98-107); CREATININE 0.51 mg/dL (0.55-1.30); GFR AFRICAN AMERICAN 155 mL/min (>90); GLUCOSE 86 mg/dL (74-106); POTASSIUM 3.5 mmol/L (3.5-5.1); SODIUM SERUM 144 mmol/L (136-145); UREA NITROGEN, BLOOD 2 mg/dL (8-21)
[2023-03-15 16:38] LABS: INR 1.1 (0.8-1.2)
[2023-03-15 16:49] LABS: GFR NON AFRICAN-AMERICAN 128 mL/min (>90)
[2023-03-15 16:52] LABS: ALANINE AMINOTRANSFERASE 14 U/L (12-78); ALBUMIN 3.8 g/dL (3.4-4.8); AMYLASE 43 U/L (0-100); ASPARTATE AMINOTRANSFERASE 8 U/L (10-37); BILIRUBIN,DIRECT 0.1 mg/dL (0.0-0.3); LACTATE DEHYDROGENASE 150 U/L (81-234); LIPASE 23 U/L (16-77); TOTAL BILIRUBIN 0.4 mg/dL (0.0-1.0); TOTAL PROTEIN, SERUM 6.9 g/dL (6.4-8.3)
[2023-03-15] MEDS: MORPHINE 2 MG/ML INJ. SYRINGE IVP ONE (17:24)
[2023-03-15] MEDS ORDERED: HYDROcodone/ACETAMIN 5-325 MG TAB (NORCO/ VICODIN) PO PRN (21:45)
[2023-03-15] MEDS ORDERED: NALOXONE HCL 0.4 MG/ML AMP (NARCAN) IVP PRN (21:45)
[2023-03-15 22:00] VITALS: O2SAT 96
[2023-03-15 22:14] VITALS: BP_SYST 143; PULSE 101; RESP 20; TEMP 98.6
[2023-03-15] MEDS: MORPHINE 4 MG INJ. 4 MG/ML VIAL IVP PRN (22:43)
[2023-03-15] MEDS: LACTULOSE 20 GM/30 ML UDC PO ONE (22:57)
[2023-03-15] MEDS: metroNIDAZOLE 250 MG TABLET PO SCH (22:57)
[2023-03-15] MEDS: CIPROFLOXACIN LACT 400 MG/D5W 200 ML IV SCH (23:29)
[2023-03-15] MEDS: CIPROFLOXACIN LACT 400 MG/D5W 200 ML IV ONE (23:29)
[2023-03-16] VITALS: BP_SYST 102; PULSE 60; RESP 20; TEMP 98.4; O2SAT 100
[2023-03-16] MEDS ORDERED: PIPERACILLIN/TAZO 3.375/DEX-IS 50 ML IV SCH
[2023-03-16 07:43] LABS: BASOPHILS % (AUTO) 0.4 % (0.0-2.0); EOSINOPHILS # (AUTO) 0.2 K/uL (0.0-0.4); EOSINOPHILS % (AUTO) 4.1 % (0.0-4.0); HEMATOCRIT 35.2 % (36-48); HEMOGLOBIN 11.4 g/dL (12.0-16.0); LYMPHOCYTES # (AUTO) 1.2 K/uL (1.0-5.5); LYMPHOCYTES % (AUTO) 21.2 % (20.5-51.5); MEAN CORPUSCULAR HEMOGLOBIN 31 pg (27-31); MEAN CORPUSCULAR HGB CONC 32 % (32-36); MEAN CORPUSCULAR VOLUME 97 fL (79.0-98.0); MONOCYTES # (AUTO) 0.4 K/uL (0.0-1.0); MONOCYTES % (AUTO) 6.8 % (1.7-9.3); NEUTROPHILS # (AUTO) 3.8 K/uL (1.8-7.7); NEUTROPHILS % (AUTO) 67.5 % (40.0-70.0); PLATELET COUNT (AUTO) 202 K/uL (130-430); RED BLOOD CELL COUNT(AUTO) 3.65 MIL/uL (4.2-6.2); RED CELL DISTRIBUTION WIDTH 14.4 % (9.0-15.0); WHITE BLOOD COUNT (AUTO) 5.7 K/uL (4.8-10.8)
[2023-03-16 08:17] LABS: ALBUMIN 3.1 g/dL (3.4-4.8); CREATININE 0.49 mg/dL (0.55-1.30); POTASSIUM 3.7 mmol/L (3.5-5.1); TOTAL BILIRUBIN 0.5 mg/dL (0.0-1.0); TOTAL PROTEIN, SERUM 5.9 g/dL (6.4-8.3)
[2023-03-16] MEDS: LACTOBACILLUS RHAMNOSUS GG 1 CAP CAPSULE PO SCH (09:09)
[2023-03-16] MEDS: FAMOTIDINE 20 MG TABLET PO SCH (09:09)
[2023-03-16] MEDS: LACTULOSE 20 GM/30 ML UDC PO SCH (09:09)
[2023-03-16] MEDS: HYDROcodone/ACETAMIN 5-325 MG TAB (NORCO/ VICODIN) PO PRN (09:14)
[2023-03-16 11:49] VITALS: BP_SYST 114; PULSE 60
[2023-03-16] MEDS: MINERAL OIL 30 ML UDC PO ONE (12:43)
[2023-03-16] MEDS: MAGNESIUM CITRATE 300 ML ORAL SOLUTION PO ONE (12:43)
[2023-03-16] MEDS: POLYETHYLENE GLYCOL 3350, 17 GM/ POWD.PACK PO ONE (12:43)
[2023-03-16 13:14] VITALS: BP_SYST 120; PULSE 80; RESP 21; TEMP 98.5; O2SAT 98
[2023-03-16] MEDS: ONDANSETRON HCL 4 MG/2 ML VIAL IVP PRN (15:58)
[2023-03-16 16:50] VITALS: BP_SYST 116; PULSE 70; RESP 20; TEMP 98.3; O2SAT 97
[2023-03-16 20:30] VITALS: BP_SYST 125; PULSE 74; RESP 18; TEMP 97.5; O2SAT 96
[2023-03-16] MEDS: MINERAL OIL 30 ML UDC PO SCH (21:00)
[2023-03-16] MEDS: TEMAZEPAM 15 MG CAPSULE PO PRN (21:13)
[2023-03-17 01:15] VITALS: BP_SYST 137; PULSE 79; RESP 20; TEMP 98.3; O2SAT 95
[2023-03-17 08:01] VITALS: BP_SYST 121; PULSE 75; RESP 20; TEMP 97.7; O2SAT 98
[2023-03-17] MEDS: POLYETHYLENE GLYCOL 3350, 17 GM/ POWD.PACK PO SCH (09:27)
[2023-03-17] MEDS: GOLYTELY / COLYTE SOLUTION 4 LITERS PO ONE (10:46)
[2023-03-17] MEDS: ONDANSETRON HCL 4 MG/2 ML VIAL IVP PRN (10:46)
[2023-03-17 12:54] VITALS: BP_SYST 125; PULSE 76; RESP 19; TEMP 97.9; O2SAT 97
[2023-03-17 16:18] VITALS: BP_SYST 122; PULSE 74; RESP 20; TEMP 97.8; O2SAT 97
[2023-03-17] MEDS ORDERED: ANUSOL 1 EA SUPP.RECT (PREPARATION H) RC PRN (17:15)
[2023-03-17] MEDS: ANUSOL 1 EA SUPP.RECT (PREPARATION H) RC ONE (18:21)
[2023-03-17 20:10] VITALS: BP_SYST 111; PULSE 87; RESP 18; TEMP 97.9; O2SAT 98
[2023-03-17 20:25] VITALS: O2SAT 97
[2023-03-17] MEDS: ANUSOL 1 EA SUPP.RECT (PREPARATION H) RC SCH (21:00)
[2023-03-17] MEDS: SODIUM PHOSPHATE,MONO-DIBASIC 133 ML ENEMA RC ONE (22:15)
[2023-03-18 00:10] VITALS: BP_SYST 114; PULSE 91; RESP 17; TEMP 97.1; O2SAT 98
[2023-03-18] MEDS: MINERAL OIL 133 ML ENEMA RC ONE (00:18)
[2023-03-18 05:17] LABS: BASOPHILS % (AUTO) 0.4 % (0.0-2.0); EOSINOPHILS # (AUTO) 0.2 K/uL (0.0-0.4); EOSINOPHILS % (AUTO) 3.4 % (0.0-4.0); HEMATOCRIT 38.2 % (36-48); HEMOGLOBIN 12.4 g/dL (12.0-16.0); LYMPHOCYTES # (AUTO) 1.2 K/uL (1.0-5.5); MEAN CORPUSCULAR HEMOGLOBIN 32 pg (27-31); MEAN CORPUSCULAR HGB CONC 33 % (32-36); MEAN CORPUSCULAR VOLUME 97 fL (79.0-98.0); MONOCYTES # (AUTO) 0.5 K/uL (0.0-1.0); MONOCYTES % (AUTO) 8.3 % (1.7-9.3); NEUTROPHILS # (AUTO) 4.5 K/uL (1.8-7.7); NEUTROPHILS % (AUTO) 68.9 % (40.0-70.0); PLATELET COUNT (AUTO) 206 K/uL (130-430); RED BLOOD CELL COUNT(AUTO) 3.95 MIL/uL (4.2-6.2); RED CELL DISTRIBUTION WIDTH 14.4 % (9.0-15.0); WHITE BLOOD COUNT (AUTO) 6.5 K/uL (4.8-10.8)
[2023-03-18 05:28] LABS: ALBUMIN 3.1 g/dL (3.4-4.8); CALCIUM 9.1 mg/dL (8.4-11.0); CREATININE 0.59 mg/dL (0.55-1.30); POTASSIUM 3.5 mmol/L (3.5-5.1); TOTAL BILIRUBIN 0.7 mg/dL (0.0-1.0); TOTAL PROTEIN, SERUM 6.1 g/dL (6.4-8.3)
[2023-03-18 08:45] VITALS: O2SAT 98
[2023-03-18 08:59] VITALS: BP_SYST 106; PULSE 87; RESP 16; TEMP 97.7; O2SAT 98
[2023-03-18 11:27] VITALS: BP_SYST 110; PULSE 90; RESP 14; TEMP 98.8; O2SAT 98
[2023-03-18 17:23] VITALS: BP_SYST 110; PULSE 85; RESP 16; TEMP 98.2; O2SAT 97
[2023-03-18 20:00] VITALS: BP_SYST 120; PULSE 71; RESP 16; TEMP 98.3; O2SAT 98
[2023-03-18] MEDS: METOCLOPRAMIDE HCL 10 MG/2 ML VIAL IVP ONE (20:17)
[2023-03-19] VITALS: BP_SYST 133; PULSE 92; RESP 18; TEMP 97.9; O2SAT 96
[2023-03-19 02:57] VITALS: O2SAT 96
[2023-03-19 04:47] LABS: BASOPHILS % (AUTO) 0.3 % (0.0-2.0); EOSINOPHILS # (AUTO) 0.2 K/uL (0.0-0.4); EOSINOPHILS % (AUTO) 3.8 % (0.0-4.0); HEMATOCRIT 39.4 % (36-48); HEMOGLOBIN 12.9 g/dL (12.0-16.0); LYMPHOCYTES # (AUTO) 1.1 K/uL (1.0-5.5); LYMPHOCYTES % (AUTO) 20.3 % (20.5-51.5); MEAN CORPUSCULAR HEMOGLOBIN 31 pg (27-31); MEAN CORPUSCULAR HGB CONC 33 % (32-36); MEAN CORPUSCULAR VOLUME 95 fL (79.0-98.0); MONOCYTES # (AUTO) 0.6 K/uL (0.0-1.0); MONOCYTES % (AUTO) 10.9 % (1.7-9.3); NEUTROPHILS # (AUTO) 3.4 K/uL (1.8-7.7); NEUTROPHILS % (AUTO) 64.7 % (40.0-70.0); PLATELET COUNT (AUTO) 222 K/uL (130-430); RED BLOOD CELL COUNT(AUTO) 4.13 MIL/uL (4.2-6.2); RED CELL DISTRIBUTION WIDTH 14.3 % (9.0-15.0); WHITE BLOOD COUNT (AUTO) 5.2 K/uL (4.8-10.8)
[2023-03-19 05:07] LABS: ALBUMIN 3.4 g/dL (3.4-4.8); CALCIUM 9.3 mg/dL (8.4-11.0); CREATININE 0.66 mg/dL (0.55-1.30); POTASSIUM 3.5 mmol/L (3.5-5.1); TOTAL BILIRUBIN 0.9 mg/dL (0.0-1.0); TOTAL PROTEIN, SERUM 6.8 g/dL (6.4-8.3)
[2023-03-19] MEDS ORDERED: GASTROGRAFIN 120 ML ONE (07:58)
[2023-03-19 08:17] VITALS: BP_SYST 114; PULSE 104; RESP 20; TEMP 98.6; O2SAT 97
[2023-03-19 08:34] VITALS: O2SAT 97
[2023-03-19 11:50] VITALS: BP_SYST 141; PULSE 115; RESP 20; TEMP 97.9; O2SAT 97
[2023-03-19] MEDS: ACETAMINOPHEN 325 MG TABLET PO PRN (13:32)
[2023-03-19] MEDS: POLYETHYLENE GLYCOL 3350, 17 GM/ POWD.PACK PO ONE (13:32)
[2023-03-19] MEDS: KETOROLAC TROMETHAMINE 15 MG VIAL IVP PRN (14:00)
[2023-03-19] MEDS: METOCLOPRAMIDE HCL 10 MG/2 ML VIAL IVP PRN (14:00)
[2023-03-19 16:55] VITALS: BP_SYST 122; PULSE 95; RESP 18; TEMP 98; O2SAT 98
[2023-03-19] MEDS: HYDROcodone/ACETAMIN 5-325 MG TAB (NORCO/ VICODIN) PO ONE (22:41)
[2023-03-20] VITALS (8 sets, daily range): BP systolic 93–142; PULSE 65–91; RESP 18–22; TEMP 89.4–98.1; O2SAT 93–99
[2023-03-20] MEDS: D5LR 1,000 ML IV SCH (10:15)
[2023-03-20 12:07] LABS: BASOPHILS % (AUTO) 0.4 % (0.0-2.0); EOSINOPHILS # (AUTO) 0.2 K/uL (0.0-0.4); EOSINOPHILS % (AUTO) 3.3 % (0.0-4.0); HEMATOCRIT 37.9 % (36-48); HEMOGLOBIN 12.5 g/dL (12.0-16.0); LYMPHOCYTES # (AUTO) 1.1 K/uL (1.0-5.5); LYMPHOCYTES % (AUTO) 21.6 % (20.5-51.5); MEAN CORPUSCULAR HEMOGLOBIN 31 pg (27-31); MEAN CORPUSCULAR HGB CONC 33 % (32-36); MEAN CORPUSCULAR VOLUME 94 fL (79.0-98.0); MONOCYTES # (AUTO) 0.7 K/uL (0.0-1.0); MONOCYTES % (AUTO) 12.9 % (1.7-9.3); NEUTROPHILS # (AUTO) 3.2 K/uL (1.8-7.7); NEUTROPHILS % (AUTO) 61.8 % (40.0-70.0); PLATELET COUNT (AUTO) 232 K/uL (130-430); RED BLOOD CELL COUNT(AUTO) 4.02 MIL/uL (4.2-6.2); WHITE BLOOD COUNT (AUTO) 5.2 K/uL (4.8-10.8)
[2023-03-20 12:25] LABS: ALBUMIN 3.7 g/dL (3.4-4.8); CALCIUM 9.7 mg/dL (8.4-11.0); CREATININE 0.95 mg/dL (0.55-1.30); POTASSIUM 3.5 mmol/L (3.5-5.1); TOTAL BILIRUBIN 0.8 mg/dL (0.0-1.0); TOTAL PROTEIN, SERUM 7.1 g/dL (6.4-8.3)
[2023-03-20 12:44] LABS: INR 1.1 (0.8-1.2); PROTHROMBIN TIME 11.2 SECS (9.5-12.5)
[2023-03-20] MEDS ORDERED: NALOXONE HCL 0.4 MG/ML AMP (NARCAN) IVP PRN ×2 (17:45→21:30)
[2023-03-20] MEDS: metroNIDAZOLE 500 mg/NS 100 ML IV SCH (17:57)
[2023-03-20] MEDS ORDERED: ONDANSETRON HCL 4 MG/2 ML VIAL ONE (20:23)
[2023-03-20] MEDS ORDERED: NS IRRIG SOLN 1000 ML IR ONE (20:23)
[2023-03-20] MEDS ORDERED: ceFAZolin SODIUM 2 GM VIAL ONE (20:23)
[2023-03-20] MEDS ORDERED: PROPOFOL 200MG/ 20ML VIAL (DIPRIVAN) IV ONE (20:23)
[2023-03-20] MEDS ORDERED: BUPIVACAINE /PF 0.25% 30 ML VIAL INJ ONE (20:23)
[2023-03-20] MEDS ORDERED: SEVOFLURANE 15 MIN GAS INH ONE (20:23)
[2023-03-20] MEDS ORDERED: LR 1,000 ML IV.SOLN IV ONE (20:23)
[2023-03-20] MEDS ORDERED: SUGAMMADEX SODIUM 200 MG/2 ML VIAL IV ONE (20:23)
[2023-03-20] MEDS ORDERED: ROCURONIUM BROMIDE 10 MG/ML (ZEMURON) ONE (20:23)
[2023-03-20] MEDS: MIDAZOLAM HCL 2 MG/2 ML VIAL (VERSED) ONE (20:37)
[2023-03-20] MEDS: fentaNYL CITRATE/PF 100 MCG/2 ML AMP ONE ×2 (20:37→21:39)
[2023-03-20] MEDS: ACETAMINOPHEN I.V. 1000 MG 100 ML IV ONE (20:37)
[2023-03-20] MEDS: LR 1,000 ML IV ONE (21:30)
[2023-03-20] MEDS ORDERED: ONDANSETRON HCL 4 MG/2 ML VIAL IVP PRN (21:30)
[2023-03-20] MEDS ORDERED: fentaNYL CITRATE/PF 100 MCG/2 ML AMP IVP PRN (21:30)
[2023-03-20] MEDS: BUPIVACAINE LIPOSOME/PF 266 MG/20 ML VIAL INFIL ONE (23:19)
[2023-03-21] VITALS (7 sets, daily range): BP systolic 98–141; PULSE 72–129; RESP 16–18; TEMP 96.8–98.7; O2SAT 93–98
[2023-03-21] MEDS: fentaNYL CITRATE/PF 100 MCG/2 ML AMP ONE (00:46)
[2023-03-21] MEDS: fentaNYL CITRATE/PF 100 MCG/2 ML AMP IVP PRN (00:48)
[2023-03-21] MEDS: HYDROmorphone 1 MG/ML INJ. CARTRIDGE IVP PRN (00:55)
[2023-03-21] MEDS: HYDROmorphone 1 MG/ML INJ. CARTRIDGE ONE (00:55)
[2023-03-21] MEDS: MORPHINE 2 MG/ML INJ. SYRINGE IVP PRN (04:29)
[2023-03-21 07:22] LABS: ALBUMIN 2.3 g/dL (3.4-4.8); CALCIUM 7.5 mg/dL (8.4-11.0); CREATININE 0.77 mg/dL (0.55-1.30); POTASSIUM 3.5 mmol/L (3.5-5.1); TOTAL BILIRUBIN 0.8 mg/dL (0.0-1.0); TOTAL PROTEIN, SERUM 4.8 g/dL (6.4-8.3)
[2023-03-21 07:39] LABS: HEMATOCRIT 38.7 % (36-48); HEMOGLOBIN 12.5 g/dL (12.0-16.0); MEAN CORPUSCULAR HEMOGLOBIN 31 pg (27-31); MEAN CORPUSCULAR HGB CONC 32 % (32-36); MEAN CORPUSCULAR VOLUME 96 fL (79.0-98.0); PLATELET COUNT (AUTO) 180 K/uL (130-430); RED BLOOD CELL COUNT(AUTO) 4.04 MIL/uL (4.2-6.2); RED CELL DISTRIBUTION WIDTH 14.5 % (9.0-15.0)
[2023-03-21 09:05] LABS: WHITE BLOOD COUNT (AUTO) 1.5 K/uL (4.8-10.8)
[2023-03-21 09:09] LABS: BAND % (MANUAL) 34 % (0-6)
[2023-03-21 09:10] LABS: BASOPHILS % (MANUAL) 0 % (0-2); EOSINOPHILS % (MANUAL) 1 % (0-7); LYMPHOCYTES % (MANUAL) 14 % (20-46); METAMYELOCYTES % 4 % (0-0); MONOCYTES % (MANUAL) 17 % (0-11)
[2023-03-21 09:11] LABS: PLATELET ESTIMATE ADEQUATE (ADEQUATE)
[2023-03-22] VITALS (7 sets, daily range): BP systolic 90–108; PULSE 109–145; RESP 12–18; TEMP 97–98.7; O2SAT 91–96
[2023-03-22 05:40] LABS: BASOPHILS % (AUTO) 0.3 % (0.0-2.0); EOSINOPHILS % (AUTO) 0.1 % (0.0-4.0); HEMOGLOBIN 11.8 g/dL (12.0-16.0); LYMPHOCYTES # (AUTO) 0.4 K/uL (1.0-5.5); MEAN CORPUSCULAR HEMOGLOBIN 31 pg (27-31); MEAN CORPUSCULAR HGB CONC 33 % (32-36); MEAN CORPUSCULAR VOLUME 95 fL (79.0-98.0); MONOCYTES # (AUTO) 0.4 K/uL (0.0-1.0); MONOCYTES % (AUTO) 4.7 % (1.7-9.3); NEUTROPHILS # (AUTO) 8.7 K/uL (1.8-7.7); NEUTROPHILS % (AUTO) 90.9 % (40.0-70.0); PLATELET COUNT (AUTO) 175 K/uL (130-430); RED CELL DISTRIBUTION WIDTH 13.9 % (9.0-15.0); WHITE BLOOD COUNT (AUTO) 9.6 K/uL (4.8-10.8)
[2023-03-22 05:43] LABS: ALBUMIN 2.1 g/dL (3.4-4.8); CALCIUM 7.8 mg/dL (8.4-11.0); CREATININE 0.99 mg/dL (0.55-1.30); POTASSIUM 3.6 mmol/L (3.5-5.1); TOTAL BILIRUBIN 0.4 mg/dL (0.0-1.0); TOTAL PROTEIN, SERUM 4.9 g/dL (6.4-8.3)
[2023-03-23] MEDS: METOCLOPRAMIDE HCL 10 MG/2 ML VIAL IVP SCH (00:38)
[2023-03-23 00:44] VITALS: BP_SYST 97; PULSE 125; RESP 16; TEMP 98.9; O2SAT 97
[2023-03-23 08:00] VITALS: O2SAT 96
[2023-03-23 08:29] VITALS: BP_SYST 106; PULSE 124; RESP 19; TEMP 97.6; O2SAT 96
[2023-03-23 08:51] LABS: BASOPHILS % (AUTO) 0.2 % (0.0-2.0); EOSINOPHILS % (AUTO) 0.1 % (0.0-4.0); HEMATOCRIT 36.6 % (36-48); HEMOGLOBIN 11.9 g/dL (12.0-16.0); LYMPHOCYTES # (AUTO) 0.4 K/uL (1.0-5.5); LYMPHOCYTES % (AUTO) 3.7 % (20.5-51.5); MEAN CORPUSCULAR HEMOGLOBIN 31 pg (27-31); MEAN CORPUSCULAR HGB CONC 33 % (32-36); MEAN CORPUSCULAR VOLUME 95 fL (79.0-98.0); MONOCYTES # (AUTO) 0.4 K/uL (0.0-1.0); MONOCYTES % (AUTO) 3.3 % (1.7-9.3); NEUTROPHILS # (AUTO) 10.9 K/uL (1.8-7.7); NEUTROPHILS % (AUTO) 92.7 % (40.0-70.0); PLATELET COUNT (AUTO) 162 K/uL (130-430); RED BLOOD CELL COUNT(AUTO) 3.86 MIL/uL (4.2-6.2); RED CELL DISTRIBUTION WIDTH 14.3 % (9.0-15.0)
[2023-03-23 08:56] LABS: WHITE BLOOD COUNT (AUTO) 11.8 K/uL (4.8-10.8)
[2023-03-23] MEDS: FAMOTIDINE PF 20 MG/2 ML VIAL IVP ONE (09:41)
[2023-03-23 09:49] LABS: ALBUMIN 2.2 g/dL (3.4-4.8); CALCIUM 8.6 mg/dL (8.4-11.0); CREATININE 1.32 mg/dL (0.55-1.30); TOTAL BILIRUBIN 0.5 mg/dL (0.0-1.0); TOTAL PROTEIN, SERUM 5.6 g/dL (6.4-8.3)
[2023-03-23 11:08] VITALS: BP_SYST 103; PULSE 110; RESP 14; TEMP 98.1; O2SAT 98
[2023-03-23] MEDS ORDERED: NALOXONE HCL 0.4 MG/ML AMP (NARCAN) IVP PRN ×3 (12:15→14:15)
[2023-03-23] MEDS ORDERED: HYDROmorphone 1 MG/ML INJ. CARTRIDGE IM PRN (12:15)
[2023-03-23] MEDS ORDERED: HYDROmorphone 1 MG/ML INJ. CARTRIDGE IV PRN (12:15)
[2023-03-23] MEDS ORDERED: MORPHINE 4 MG INJ. 4 MG/ML VIAL IVP PRN (12:45)
[2023-03-23] MEDS ORDERED: POTASSIUM CHLORIDE 40 MEQ, LIDOCAINE JECT 2% PF 100 MG 50 MG in NS 250 ML IV ONE (12:45)
[2023-03-23] MEDS: KCL 20 mEq in 100 mL (PREMIX) 100 ML IV SCH (13:40)
[2023-03-23] MEDS: METOCLOPRAMIDE HCL 10 MG/2 ML VIAL IVP PRN (15:14)
[2023-03-23] MEDS: PIPERACILLIN/TAZOBACTAM 2.25 GM in D5W 50 ML IV SCH (15:27)
[2023-03-23] MEDS: HYDROmorphone 1 MG/ML INJ. CARTRIDGE IVP PRN (15:27)
[2023-03-23 15:28] VITALS: BP_SYST 101; PULSE 72; RESP 16; TEMP 97; O2SAT 93
[2023-03-23 17:28] LABS: HEMATOCRIT 34.1 % (36-48); HEMOGLOBIN 11.1 g/dL (12.0-16.0); MEAN CORPUSCULAR HEMOGLOBIN 31 pg (27-31); MEAN CORPUSCULAR HGB CONC 33 % (32-36); MEAN CORPUSCULAR VOLUME 94 fL (79.0-98.0); PLATELET COUNT (AUTO) 157 K/uL (130-430); RED BLOOD CELL COUNT(AUTO) 3.64 MIL/uL (4.2-6.2); RED CELL DISTRIBUTION WIDTH 14.5 % (9.0-15.0); WHITE BLOOD COUNT (AUTO) 11.1 K/uL (4.8-10.8)
[2023-03-23 17:44] LABS: CALCIUM 8.3 mg/dL (8.4-11.0); CREATININE 1.18 mg/dL (0.55-1.30); PHOSPHORUS 2.9 mg/dL (2.7-4.5); POTASSIUM 3.3 mmol/L (3.5-5.1)
[2023-03-23 18:01] LABS: BAND % (MANUAL) 16 % (0-6); BASOPHILS % (MANUAL) 0 % (0-2); EOSINOPHILS % (MANUAL) 0 % (0-7); LYMPHOCYTES % (MANUAL) 7 % (20-46); MONOCYTES % (MANUAL) 2 % (0-11)
[2023-03-23 20:00] VITALS: BP_SYST 102; PULSE 119; RESP 18; TEMP 98.5; O2SAT 96
[2023-03-23] MEDS: HYDROmorphone 1 MG/ML INJ. CARTRIDGE IV PRN (21:24)
[2023-03-24] VITALS (8 sets, daily range): BP systolic 89–106; PULSE 78–114; RESP 14–22; TEMP 97.4–98.6; O2SAT 94–100
[2023-03-24 06:29] LABS: BASOPHILS % (AUTO) 0.1 % (0.0-2.0); EOSINOPHILS % (AUTO) 0.3 % (0.0-4.0); HEMATOCRIT 28.3 % (36-48); HEMOGLOBIN 9.3 g/dL (12.0-16.0); LYMPHOCYTES # (AUTO) 0.5 K/uL (1.0-5.5); LYMPHOCYTES % (AUTO) 5.8 % (20.5-51.5); MEAN CORPUSCULAR HEMOGLOBIN 31 pg (27-31); MEAN CORPUSCULAR HGB CONC 33 % (32-36); MEAN CORPUSCULAR VOLUME 94 fL (79.0-98.0); MONOCYTES # (AUTO) 0.3 K/uL (0.0-1.0); MONOCYTES % (AUTO) 3.7 % (1.7-9.3); NEUTROPHILS # (AUTO) 7.4 K/uL (1.8-7.7); NEUTROPHILS % (AUTO) 90.1 % (40.0-70.0); PLATELET COUNT (AUTO) 117 K/uL (130-430); RED BLOOD CELL COUNT(AUTO) 3.02 MIL/uL (4.2-6.2); RED CELL DISTRIBUTION WIDTH 14.2 % (9.0-15.0); WHITE BLOOD COUNT (AUTO) 8.2 K/uL (4.8-10.8)
[2023-03-24 06:30] LABS: INR 1.3 (0.8-1.2); PROTHROMBIN TIME 12.9 SECS (9.5-12.5)
[2023-03-24 06:40] LABS: ALBUMIN 1.7 g/dL (3.4-4.8); CREATININE 1.01 mg/dL (0.55-1.30); PHOSPHORUS 2.3 mg/dL (2.7-4.5); TOTAL BILIRUBIN 0.4 mg/dL (0.0-1.0); TOTAL PROTEIN, SERUM 4.5 g/dL (6.4-8.3)
[2023-03-24] MEDS: MULTIVITS,CA,MINERALS/IRON/FA 1 TABLET PO ONE (14:44)
[2023-03-24] MEDS: POTASSIUM CHLORIDE 20 MEQ TABLET.ER PO ONE (14:45)
[2023-03-24] MEDS ORDERED: ACETAMINOPHEN WITH CODEINE 12.5 ML UDC PO PRN (15:30)
[2023-03-24] MEDS: ACETAMINOPHEN I.V. 1000 MG 100 ML IV ONE (16:11)
[2023-03-24] MEDS: POTASSIUM CHLORIDE 40 MEQ in NS 250 ML IV ONE (17:02)
[2023-03-24] MEDS: MULTIVITS,CA,MINERALS/IRON/FA 1 TABLET PO SCH (21:00)
[2023-03-24] MEDS: POTASSIUM CHLORIDE 20 MEQ TABLET.ER PO SCH (21:00)
[2023-03-25] VITALS: BP_SYST 112; PULSE 103; RESP 20; TEMP 97.5; O2SAT 97
[2023-03-25 08:00] VITALS: BP_SYST 102; PULSE 114; RESP 18; TEMP 97.8; O2SAT 97
[2023-03-25 10:00] VITALS: O2SAT 97
[2023-03-25] MEDS ORDERED: ENOXAPARIN SODIUM 40 MG/0.4 ML SYRINGE SUBCUT SCH (10:00)
[2023-03-25 12:05] VITALS: BP_SYST 107; PULSE 109; RESP 18; TEMP 98.1; O2SAT 96
[2023-03-25 12:24] LABS: ALBUMIN 1.6 g/dL (3.4-4.8); CALCIUM 7.6 mg/dL (8.4-11.0); CREATININE 0.72 mg/dL (0.55-1.30); POTASSIUM 3.4 mmol/L (3.5-5.1); TOTAL BILIRUBIN 0.5 mg/dL (0.0-1.0); TOTAL PROTEIN, SERUM 4.8 g/dL (6.4-8.3)
[2023-03-25] MEDS: ENOXAPARIN SODIUM 40 MG/0.4 ML SYRINGE SUBCUT ONE (12:33)
[2023-03-25 16:05] VITALS: BP_SYST 109; PULSE 106; RESP 16; TEMP 98.3; O2SAT 97
[2023-03-25] MEDS ORDERED: LACTOBACILLUS RHAMNOSUS GG 1 CAP CAPSULE PO SCH (17:15)
[2023-03-25] MEDS: metroNIDAZOLE 250 MG TABLET PO ONE (19:01)
[2023-03-25 20:00] VITALS: BP_SYST 101; BP_SYST 110; PULSE 100; PULSE 113; RESP 20; RESP 22; TEMP 98.2; TEMP 99; O2SAT 94; O2SAT 99
[2023-03-25] MEDS: metroNIDAZOLE 250 MG TABLET PO SCH (21:00)
[2023-03-25] MEDS: CIPROFLOXACIN HCL 500 MG TABLET PO SCH (22:00)
[2023-03-26] VITALS: BP_SYST 106; PULSE 109; RESP 20; TEMP 98.5; O2SAT 97
[2023-03-26 07:39] LABS: BASOPHILS % (AUTO) 0.3 % (0.0-2.0); EOSINOPHILS % (AUTO) 0.4 % (0.0-4.0); HEMOGLOBIN 10.1 g/dL (12.0-16.0); LYMPHOCYTES % (AUTO) 8.7 % (20.5-51.5); MEAN CORPUSCULAR HEMOGLOBIN 30 pg (27-31); MEAN CORPUSCULAR HGB CONC 33 % (32-36); MEAN CORPUSCULAR VOLUME 93 fL (79.0-98.0); MONOCYTES # (AUTO) 0.5 K/uL (0.0-1.0); MONOCYTES % (AUTO) 4.2 % (1.7-9.3); NEUTROPHILS # (AUTO) 9.6 K/uL (1.8-7.7); NEUTROPHILS % (AUTO) 86.4 % (40.0-70.0); PLATELET COUNT (AUTO) 157 K/uL (130-430); RED BLOOD CELL COUNT(AUTO) 3.34 MIL/uL (4.2-6.2); RED CELL DISTRIBUTION WIDTH 14.7 % (9.0-15.0); WHITE BLOOD COUNT (AUTO) 11.1 K/uL (4.8-10.8)
[2023-03-26 08:00] LABS: ALBUMIN 1.7 g/dL (3.4-4.8); CALCIUM 7.7 mg/dL (8.4-11.0); CREATININE 0.59 mg/dL (0.55-1.30); POTASSIUM 3.1 mmol/L (3.5-5.1); TOTAL BILIRUBIN 0.5 mg/dL (0.0-1.0)
[2023-03-26 08:10] VITALS: BP_SYST 109; PULSE 116; RESP 20; TEMP 98.6; O2SAT 99
[2023-03-26] MEDS: ENOXAPARIN SODIUM 40 MG/0.4 ML SYRINGE SUBCUT SCH (10:15)
[2023-03-26 10:36] VITALS: O2SAT 96
[2023-03-26 11:06] VITALS: BP_SYST 101; PULSE 111; RESP 20; TEMP 97.3; O2SAT 98
[2023-03-26] MEDS: METOCLOPRAMIDE HCL 10 MG/10 ML UDC PO ONE (13:43)
[2023-03-26] MEDS: ACETAMINOPHEN WITH CODEINE 12.5 ML UDC PO PRN (17:15)
[2023-03-26] MEDS: METOCLOPRAMIDE HCL 10 MG/10 ML UDC PO SCH (17:15)
[2023-03-26 17:16] VITALS: BP_SYST 130; PULSE 98; RESP 20; TEMP 97.3; O2SAT 98
[2023-03-26 20:00] VITALS: BP_SYST 115; PULSE 105; RESP 18; TEMP 98.5; O2SAT 97
[2023-03-26] MEDS: POTASSIUM CHLORIDE 20 MEQ/PKT PACKET PO SCH (21:57)
[2023-03-27 00:26] VITALS: BP_SYST 127; PULSE 75; RESP 18; TEMP 97.6; O2SAT 96
[2023-03-27 06:16] LABS: BASOPHILS % (AUTO) 0.1 % (0.0-2.0); EOSINOPHILS # (AUTO) 0.1 K/uL (0.0-0.4); EOSINOPHILS % (AUTO) 0.4 % (0.0-4.0); HEMATOCRIT 34.2 % (36-48); LYMPHOCYTES # (AUTO) 0.9 K/uL (1.0-5.5); LYMPHOCYTES % (AUTO) 5.8 % (20.5-51.5); MEAN CORPUSCULAR HEMOGLOBIN 30 pg (27-31); MEAN CORPUSCULAR HGB CONC 32 % (32-36); MEAN CORPUSCULAR VOLUME 94 fL (79.0-98.0); MONOCYTES # (AUTO) 0.4 K/uL (0.0-1.0); MONOCYTES % (AUTO) 2.8 % (1.7-9.3); NEUTROPHILS # (AUTO) 13.9 K/uL (1.8-7.7); NEUTROPHILS % (AUTO) 90.9 % (40.0-70.0); PLATELET COUNT (AUTO) 192 K/uL (130-430); RED BLOOD CELL COUNT(AUTO) 3.66 MIL/uL (4.2-6.2); RED CELL DISTRIBUTION WIDTH 14.7 % (9.0-15.0)
[2023-03-27 07:02] LABS: ALBUMIN 1.8 g/dL (3.4-4.8); CALCIUM 8.2 mg/dL (8.4-11.0); CREATININE 0.55 mg/dL (0.55-1.30); POTASSIUM 3.7 mmol/L (3.5-5.1); TOTAL BILIRUBIN 0.5 mg/dL (0.0-1.0); TOTAL PROTEIN, SERUM 5.5 g/dL (6.4-8.3)
[2023-03-27 08:00] VITALS: BP_SYST 104; PULSE 112; RESP 18; TEMP 97.7; O2SAT 99
[2023-03-27 08:09] LABS: WHITE BLOOD COUNT (AUTO) 15.4 K/uL (4.8-10.8)
[2023-03-27 11:08] VITALS: BP_SYST 106; PULSE 115; RESP 17; TEMP 97.8; O2SAT 97
[2023-03-27] MEDS: PIPERACILLIN/TAZO 3.375/DEX-IS 50 ML IV SCH (15:07)
[2023-03-27 15:50] VITALS: BP_SYST 104; PULSE 112; RESP 15; TEMP 98.2; O2SAT 95
[2023-03-27 20:00] VITALS: BP_SYST 106; PULSE 115; RESP 21; TEMP 98.3; O2SAT 96; O2SAT 99
[2023-03-27] MEDS ORDERED: ACETAMINOPHEN WITH CODEINE 12.5 ML UDC PO PRN (20:30)
[2023-03-28] VITALS (7 sets, daily range): BP systolic 98–133; PULSE 96–116; RESP 18–20; TEMP 97.3–98.9; O2SAT 97–100
[2023-03-28] MEDS: HYDROmorphone 1 MG/ML INJ. CARTRIDGE IVP PRN (01:53)
[2023-03-28 05:50] LABS: BASOPHILS % (AUTO) 0.1 % (0.0-2.0); EOSINOPHILS # (AUTO) 0.1 K/uL (0.0-0.4); EOSINOPHILS % (AUTO) 0.3 % (0.0-4.0); HEMATOCRIT 29.6 % (36-48); HEMOGLOBIN 9.6 g/dL (12.0-16.0); LYMPHOCYTES % (AUTO) 6.4 % (20.5-51.5); MEAN CORPUSCULAR HEMOGLOBIN 30 pg (27-31); MEAN CORPUSCULAR HGB CONC 32 % (32-36); MEAN CORPUSCULAR VOLUME 93 fL (79.0-98.0); MONOCYTES # (AUTO) 0.8 K/uL (0.0-1.0); MONOCYTES % (AUTO) 5.3 % (1.7-9.3); NEUTROPHILS # (AUTO) 13.5 K/uL (1.8-7.7); NEUTROPHILS % (AUTO) 87.9 % (40.0-70.0); PLATELET COUNT (AUTO) 221 K/uL (130-430); RED BLOOD CELL COUNT(AUTO) 3.18 MIL/uL (4.2-6.2); RED CELL DISTRIBUTION WIDTH 14.7 % (9.0-15.0); WHITE BLOOD COUNT (AUTO) 15.4 K/uL (4.8-10.8)
[2023-03-28 06:15] LABS: ALBUMIN 1.6 g/dL (3.4-4.8); CALCIUM 7.6 mg/dL (8.4-11.0); CREATININE 0.49 mg/dL (0.55-1.30); POTASSIUM 4.2 mmol/L (3.5-5.1); TOTAL BILIRUBIN 0.5 mg/dL (0.0-1.0)
[2023-03-28] MEDS: KETOROLAC TROMETHAMINE 30 MG VIAL IVP SCH (18:33)
[2023-03-29] VITALS (7 sets, daily range): BP systolic 98–112; PULSE 93–104; RESP 17–18; TEMP 98–98.9; O2SAT 96–100
[2023-03-29 06:11] LABS: BASOPHILS % (AUTO) 0.2 % (0.0-2.0); EOSINOPHILS # (AUTO) 0.1 K/uL (0.0-0.4); EOSINOPHILS % (AUTO) 0.5 % (0.0-4.0); HEMATOCRIT 30.6 % (36-48); HEMOGLOBIN 9.9 g/dL (12.0-16.0); LYMPHOCYTES # (AUTO) 0.8 K/uL (1.0-5.5); LYMPHOCYTES % (AUTO) 5.1 % (20.5-51.5); MEAN CORPUSCULAR HEMOGLOBIN 30 pg (27-31); MEAN CORPUSCULAR HGB CONC 33 % (32-36); MEAN CORPUSCULAR VOLUME 93 fL (79.0-98.0); MONOCYTES # (AUTO) 0.7 K/uL (0.0-1.0); MONOCYTES % (AUTO) 4.2 % (1.7-9.3); NEUTROPHILS # (AUTO) 14.9 K/uL (1.8-7.7); PLATELET COUNT (AUTO) 265 K/uL (130-430); RED BLOOD CELL COUNT(AUTO) 3.29 MIL/uL (4.2-6.2); RED CELL DISTRIBUTION WIDTH 14.8 % (9.0-15.0); WHITE BLOOD COUNT (AUTO) 16.5 K/uL (4.8-10.8)
[2023-03-29 06:33] LABS: CALCIUM 7.9 mg/dL (8.4-11.0); POTASSIUM 4.1 mmol/L (3.5-5.1)
[2023-03-29 06:34] LABS: CREATININE 0.64 mg/dL (0.55-1.30)
[2023-03-29] MEDS ORDERED: DIATR MEGLU/DIATRIZ SOD 30 ML SOLUTION PO ONE (11:16)
[2023-03-30] VITALS: BP_SYST 95; PULSE 87; RESP 16; TEMP 98.5; O2SAT 99
[2023-03-30 10:42] LABS: BASOPHILS % (AUTO) 0.2 % (0.0-2.0); EOSINOPHILS % (AUTO) 0.4 % (0.0-4.0); HEMATOCRIT 34.3 % (36-48); HEMOGLOBIN 11.1 g/dL (12.0-16.0); LYMPHOCYTES # (AUTO) 0.9 K/uL (1.0-5.5); LYMPHOCYTES % (AUTO) 6.5 % (20.5-51.5); MEAN CORPUSCULAR HEMOGLOBIN 30 pg (27-31); MEAN CORPUSCULAR HGB CONC 32 % (32-36); MEAN CORPUSCULAR VOLUME 93 fL (79.0-98.0); MONOCYTES # (AUTO) 0.5 K/uL (0.0-1.0); MONOCYTES % (AUTO) 3.5 % (1.7-9.3); NEUTROPHILS # (AUTO) 11.8 K/uL (1.8-7.7); NEUTROPHILS % (AUTO) 89.4 % (40.0-70.0); PLATELET COUNT (AUTO) 432 K/uL (130-430); RED BLOOD CELL COUNT(AUTO) 3.69 MIL/uL (4.2-6.2); RED CELL DISTRIBUTION WIDTH 14.7 % (9.0-15.0); WHITE BLOOD COUNT (AUTO) 13.2 K/uL (4.8-10.8)
[2023-03-30 10:52] LABS: ALBUMIN 1.9 g/dL (3.4-4.8); CREATININE 0.64 mg/dL (0.55-1.30); POTASSIUM 3.6 mmol/L (3.5-5.1); TOTAL BILIRUBIN 0.4 mg/dL (0.0-1.0); TOTAL PROTEIN, SERUM 5.9 g/dL (6.4-8.3)
[2023-03-30 12:08] VITALS: BP_SYST 101; PULSE 97; RESP 17; TEMP 98.7; O2SAT 98
[2023-03-30 16:10] VITALS: BP_SYST 98; PULSE 84; RESP 18; TEMP 98.6; O2SAT 98
[2023-03-30] MEDS ORDERED: HYDROcodone/ACETAMIN 5-325 MG TAB (NORCO/ VICODIN) PO PRN (17:15)
[2023-03-30] MEDS ORDERED: NALOXONE HCL 0.4 MG/ML AMP (NARCAN) IVP PRN ×2 (17:15)
[2023-03-30 19:00] VITALS: O2SAT 98
[2023-03-30 20:00] VITALS: BP_SYST 100; PULSE 96; RESP 18; TEMP 97.4; O2SAT 98
[2023-03-30] MEDS: HYDROcodone/ACETAMIN 10-325 MG TAB PO PRN (22:08)
[2023-03-31 09:11] LABS: BASOPHILS # (AUTO) 0.1 K/uL (0.0-0.2); BASOPHILS % (AUTO) 0.6 % (0.0-2.0); EOSINOPHILS % (AUTO) 0.3 % (0.0-4.0); HEMATOCRIT 26.8 % (36-48); HEMOGLOBIN 8.9 g/dL (12.0-16.0); LYMPHOCYTES # (AUTO) 0.8 K/uL (1.0-5.5); LYMPHOCYTES % (AUTO) 6.5 % (20.5-51.5); MEAN CORPUSCULAR HEMOGLOBIN 30 pg (27-31); MEAN CORPUSCULAR HGB CONC 33 % (32-36); MEAN CORPUSCULAR VOLUME 92 fL (79.0-98.0); MONOCYTES # (AUTO) 0.9 K/uL (0.0-1.0); MONOCYTES % (AUTO) 7.3 % (1.7-9.3); NEUTROPHILS # (AUTO) 10.4 K/uL (1.8-7.7); NEUTROPHILS % (AUTO) 85.3 % (40.0-70.0); PLATELET COUNT (AUTO) 432 K/uL (130-430); RED BLOOD CELL COUNT(AUTO) 2.92 MIL/uL (4.2-6.2); RED CELL DISTRIBUTION WIDTH 14.8 % (9.0-15.0); WHITE BLOOD COUNT (AUTO) 12.2 K/uL (4.8-10.8)
[2023-03-31 09:22] LABS: ALBUMIN 1.5 g/dL (3.4-4.8); CALCIUM 7.5 mg/dL (8.4-11.0); CREATININE 0.56 mg/dL (0.55-1.30); POTASSIUM 3.5 mmol/L (3.5-5.1); TOTAL BILIRUBIN 0.3 mg/dL (0.0-1.0); TOTAL PROTEIN, SERUM 4.7 g/dL (6.4-8.3)
[2023-03-31 10:20] VITALS: BP_SYST 100; PULSE 96; O2SAT 98
[2023-03-31 10:42] VITALS: O2SAT 98
[2023-03-31 12:04] VITALS: BP_SYST 99; PULSE 89; RESP 17; TEMP 97.8; O2SAT 97
[2023-03-31 16:22] VITALS: BP_SYST 101; PULSE 92; RESP 18; TEMP 97.6; O2SAT 98
[2023-03-31 19:00] VITALS: BP_SYST 104; PULSE 94; RESP 16; TEMP 97.4; O2SAT 96
[2023-03-31 20:00] VITALS: BP_SYST 105; PULSE 94; RESP 16; TEMP 97.4; O2SAT 96
[2023-04-01] VITALS: BP_SYST 103; PULSE 92; RESP 16; TEMP 97.2; O2SAT 96
[2023-04-01 06:32] LABS: BASOPHILS # (AUTO) 0.1 K/uL (0.0-0.2); BASOPHILS % (AUTO) 0.6 % (0.0-2.0); EOSINOPHILS # (AUTO) 0.1 K/uL (0.0-0.4); EOSINOPHILS % (AUTO) 0.6 % (0.0-4.0); HEMATOCRIT 27.1 % (36-48); HEMOGLOBIN 9.1 g/dL (12.0-16.0); LYMPHOCYTES # (AUTO) 1.1 K/uL (1.0-5.5); LYMPHOCYTES % (AUTO) 9.2 % (20.5-51.5); MEAN CORPUSCULAR HEMOGLOBIN 31 pg (27-31); MEAN CORPUSCULAR HGB CONC 34 % (32-36); MEAN CORPUSCULAR VOLUME 92 fL (79.0-98.0); MONOCYTES # (AUTO) 0.8 K/uL (0.0-1.0); MONOCYTES % (AUTO) 6.8 % (1.7-9.3); NEUTROPHILS % (AUTO) 82.8 % (40.0-70.0); PLATELET COUNT (AUTO) 523 K/uL (130-430); RED BLOOD CELL COUNT(AUTO) 2.93 MIL/uL (4.2-6.2); RED CELL DISTRIBUTION WIDTH 14.5 % (9.0-15.0); WHITE BLOOD COUNT (AUTO) 12.1 K/uL (4.8-10.8)
[2023-04-01 07:02] LABS: ALBUMIN 1.5 g/dL (3.4-4.8); CALCIUM 7.7 mg/dL (8.4-11.0); CREATININE 0.61 mg/dL (0.55-1.30); POTASSIUM 3.7 mmol/L (3.5-5.1); TOTAL BILIRUBIN 0.3 mg/dL (0.0-1.0); TOTAL PROTEIN, SERUM 4.8 g/dL (6.4-8.3)
[2023-04-01 07:14] LABS: TOTAL IRON BIND. CAPACITY 102 ug/dL (250-450)
[2023-04-01 08:45] VITALS: O2SAT 99
[2023-04-01 08:54] VITALS: BP_SYST 94; PULSE 108; RESP 18; TEMP 98.5; O2SAT 99
[2023-04-01 11:59] VITALS: BP_SYST 95; PULSE 105; RESP 18; TEMP 97.6; O2SAT 97
[2023-04-01] MEDS ORDERED: FLUC200T PO (13:34)
[2023-04-01] MEDS ORDERED: HYDR-3927 PO (13:34)
[2023-04-01] MEDS ORDERED: CIPR-260 PO (13:34)
[2023-04-01] MEDS ORDERED: LACT1CAP57 PO (13:34)
[2023-04-01] MEDS ORDERED: AUG875 PO (13:34)
[2023-04-01] MEDS ORDERED: MULT-1145 PO (13:38)
[2023-04-01] MEDS: AMOXICILLIN/POTASSIUM CLAV 875 MG TABLET PO ONE (13:44)
[2023-04-01] MEDS: FLUCONAZOLE 200 mg/ NS 100 ML IV SCH (15:00)
[2023-04-01] MEDS: SOD FERRIC GLUC COMPLEX/SUC 125 MG in NS 100 ML IV SCH (17:00)
[2023-04-01 17:16] VITALS: BP_SYST 98; PULSE 110; RESP 18; TEMP 98; O2SAT 97
[2023-04-01 17:44] VITALS: BP_SYST 98; PULSE 110; RESP 18; TEMP 98; O2SAT 97
[2023-04-01] MEDS ORDERED: AMOXICILLIN/POTASSIUM CLAV 875 MG TABLET PO SCH (21:00)
== END 2023-04-01 23:51 | disposition home health service (06) | DRG 329 ==
LOC: SED 14:32 → SMU 20:22
PROVIDERS: ADMIT Internal Medicine; ATTEND Internal Medicine
PROC: 0DBU0ZZ Excision of Omentum, Open Approach (ICD-10-PCS; 2023-03-20)
PROC: 0DBK0ZZ Excision of Ascending Colon, Open Approach (ICD-10-PCS; 2023-03-20)
PROC: 0DNK0ZZ Release Ascending Colon, Open Approach (ICD-10-PCS; 2023-03-20)
PROC: 0DBB0ZZ Excision of Ileum, Open Approach (ICD-10-PCS; 2023-03-20)
PROC: 0DJD4ZZ Inspection of Lower Intestinal Tract, Percutaneous Endoscopic Approach (ICD-10-PCS; principal; 2023-03-20 20:33)
DX: C18.9 Malignant neoplasm of colon, unspecified (principal); E43 Unspecified severe protein-calorie malnutrition; J69.0 Pneumonitis due to inhalation of food and vomit; K63.1 Perforation of intestine (nontraumatic); K86.2 Cyst of pancreas; E87.0 Hyperosmolality and hypernatremia; K86.1 Other chronic pancreatitis; K56.7 Ileus, unspecified; K56.51 Intestinal adhesions [bands], with partial obstruction; D64.9 Anemia, unspecified; K56.41 Fecal impaction; R59.9 Enlarged lymph nodes, unspecified; E87.6 Hypokalemia; D72.829 Elevated white blood cell count, unspecified; F17.210 Nicotine dependence, cigarettes, uncomplicated; Z79.891 Long term (current) use of opiate analgesic; Z79.899 Other long term (current) drug therapy; Z90.49 Acquired absence of other specified parts of digestive tract; Z68.22 Body mass index [BMI] 22.0-22.9, adult; Z53.31 Laparoscopic surgical procedure converted to open procedure
CPT/HCPCS: 36415; 71045; 74018; 74181; 74250; 76376; 76856; 80048; 80053; 80076; 81001; 81003; 82150; 82378; 83540; 83550; 83605; 83615; 83690; 83735; 84100; 84484; 85007; 85025; 85027; 85610; 85730; 86301; 86886; 86900; 86901; 87040; 87070; 87081; 88305; 88307; 88341; 88342; 93005; 94010; 94760; 96374; 97110-GP; 97116-GP; 97530-GP; 99285; C1727; C9290; J0131; J0744; J1170; J1450; J1650; J1885; J2270; J2405; J2543; J2704; J2765; J2916; J3010; J3465; J3480; J3490; J7050; J7060; J7120; J8597; Q9963; Q9964; Q9967

== ENCOUNTER 2023-07-17 12:33 | Emergency (ER) | payer MEDICARE ==
[~2023-07-17] VITALS: Ht 157.5 cm; Wt 54.4 kg
[2023-07-17 12:33] VITALS: BP_SYST 115; PULSE 89; RESP 19; TEMP 97.4; O2SAT 99
[~2023-07-17 12:33] MED LIST changes: -AUG875 PO; +CHOL500013 PO; +DOCU250C71 PO; -FAMO20TA8 PO; +HYDR-3927 PO; +LACT1CAP57 PO; +METO-290 PO; +MIRT-147 PO; +MULT-1145 PO; +MULT-969 PO; -ONDA-8 TL
[2023-07-17 13:19] LABS: BILIRUBIN,URINE NEGATIVE (NEGATIVE); BLOOD, URINE NEGATIVE (NEGATIVE); CLARITY/URINE CLEAR (CLEAR); COLOR,URINE YELLOW (YELLOW); GLUCOSE,URINE NEGATIVE (NEGATIVE); KETONES,URINE NEGATIVE (NEGATIVE); LEUKOCYTE ESTERASE ,URINE NEGATIVE (NEGATIVE); NITRITE, URINE NEGATIVE (NEGATIVE); PROTEIN URINE TRACE (NEGATIVE); UROBILINOGEN,URINE 0.2 (0.2-1.0)
[2023-07-17] MEDS: KETOROLAC TROMETHAMINE 30 MG VIAL IVP ONE (13:31)
[2023-07-17 13:33] LABS: BASOPHILS % (AUTO) 0.6 % (0.0-2.0); EOSINOPHILS # (AUTO) 0.1 K/uL (0.0-0.4); EOSINOPHILS % (AUTO) 3.5 % (0.0-4.0); HEMATOCRIT 36.3 % (36-48); HEMOGLOBIN 11.9 g/dL (12.0-16.0); LYMPHOCYTES # (AUTO) 1.6 K/uL (1.0-5.5); LYMPHOCYTES % (AUTO) 42.7 % (20.5-51.5); MEAN CORPUSCULAR HEMOGLOBIN 30 pg (27-31); MEAN CORPUSCULAR HGB CONC 33 % (32-36); MEAN CORPUSCULAR VOLUME 91 fL (79.0-98.0); MONOCYTES # (AUTO) 0.2 K/uL (0.0-1.0); NEUTROPHILS # (AUTO) 1.9 K/uL (1.8-7.7); NEUTROPHILS % (AUTO) 49.2 % (40.0-70.0); PLATELET COUNT (AUTO) 152 K/uL (130-430); RED BLOOD CELL COUNT(AUTO) 3.98 MIL/uL (4.2-6.2); WHITE BLOOD COUNT (AUTO) 3.9 K/uL (4.8-10.8)
[2023-07-17 13:48] LABS: ALBUMIN 3.1 g/dL (3.4-4.8); BILIRUBIN,DIRECT 0.1 mg/dL (0.0-0.3); CREATININE 0.62 mg/dL (0.55-1.30); POTASSIUM 3.6 mmol/L (3.5-5.1); TOTAL BILIRUBIN 0.2 mg/dL (0.0-1.0); TOTAL PROTEIN, SERUM 7.5 g/dL (6.4-8.3)
[2023-07-17] MEDS: ONDANSETRON HCL 4 MG/2 ML VIAL IVP ONE (13:59)
[2023-07-17] MEDS: MORPHINE 4 MG INJ. 4 MG/ML VIAL IVP ONE (13:59)
[2023-07-17 16:12] VITALS: BP_SYST 113; PULSE 64; RESP 19; TEMP 97.2; O2SAT 98
== END 2023-07-17 16:11 | disposition home or self-care (01) ==
LOC: SED 12:33
DX: M54.50 Low back pain, unspecified (principal); R10.9 Unspecified abdominal pain
CPT/HCPCS: 99285; 74176; 96374; 96375; 80076; 80048; 81001; 83690; 85025; 36415; J1885; J2405; J2270; 81003

== ENCOUNTER 2023-10-11 10:48 | Outpatient (CLI) | payer MEDICARE | END 2023-10-11 20:04 | disposition home or self-care (01) | LOC: SCT 10:48 | PROVIDERS: ATTEND Internal Medicine | DX: C18.9 Malignant neoplasm of colon, unspecified (principal); M62.08 Separation of muscle (nontraumatic), other site; Z90.49 Acquired absence of other specified parts of digestive tract | CPT/HCPCS: 74177; Q9967 ==